=== PATIENT | female | born 1940 | race Caucasian/White ===

== ENCOUNTER 2017-07-15 13:50 | Observation (INO) | payer MEDICARE, SELFPAY ==
[2017-07-15] VITALS (10 sets, daily range): BP systolic 84–145; BP diastolic 58–90; PULSE 58–96; RESP 16–18; TEMP 36.6–36.7; O2SAT 94–100; BMI 26.1; BMI 25.7
--- NOTE | 2017-07-15 13:59 | NURSING ---
NO OLD EKGS
--- NOTE | 2017-07-15 14:25 | EKG12_ITS ---
Test Reason : CP Blood Pressure : / mmHG Vent. Rate : 074 BPM Atrial Rate : 074 BPM P-R Int : 156 ms QRS Dur : 066 ms QT Int : 390 ms P-R-T Axes : 064 -13 034 degrees QTc Int : 432 ms Sinus rhythm with Premature atrial complexes Inferior infarct , age undetermined Abnormal ECG Confirmed by WALI MCGHEE, CROW ([id number]), scientific publications editor CHRISTOFER FERGUSON ([id number]) on 07/19/2017 1:34:40 PM Referred By: RASHMI Confirmed By:CROW KEYES MD
--- NOTE | 2017-07-15 14:25 | RAD_ITS ---
STUDY: X-RAY CHEST REASON FOR EXAM: Female, 77 years old. chest pain, SOB TECHNIQUE: Single AP portable view of the chest. COMPARISON: None. FINDINGS: There is a calcified granuloma in the right lung upper lobe measures 3 mm. There is no demonstrated pleural abnormality. Normal size heart. Normal mediastinum and ranulfo. Normal visualized pulmonary arteries. Normal visualized aortic arch and descending thoracic aorta. There is a mild dextroscoliosis of the thoracic spine. There is degenerative osteoarthritis of the bilateral shoulders. There is no demonstrated abnormality of the visualized soft tissue structures of the upper abdomen. RAD/Chest 1 View (Portable) IMPRESSION: Degenerative changes, as described above. No demonstrated acute cardiopulmonary process. Electronically Signed: Gracia Marie MD at 14:45 EDT Tel , Service support ,
[2017-07-15] MEDS: Aspirin 81 MG TAB.CHEW 324 MG PO (14:29)
[2017-07-15 14:42] LABS: Absolute Lymphocyte Count 3.06 X10^3/ul (0.83-4.51); Absolute Neutrophil Count 6.3 X10^3/uL (2.0-7.7); Basophil# 0.03 X10^3/uL; Basophil% 0.3 % (0-1); Eosinophil# 0.05 X10^3/uL; Eosinophils% 0.5 % (0-5); Hematocrit 43.2 % (37-47); Hemoglobin 14.1 g/dl (12.0-15.0); Lymphocyte # 3.06 X10^3/ul (4.0); Lymphocyte % 29.9 % (19-41); Mean Corp Hgb Conc 32.6 g/gl (32-36); Mean Corpuscular Hgb 30.1 pg (27.0-32.0); Mean Corpuscular Volume 92.3 fL (81-99); Mean Platelet Vol. 10.7 fl (6.2-12.0); Monocyte# 0.76 X10^3/uL; Monocyte% 7.4 % (0-10); Neutrophil # 6.33 X10^3/uL (2.7-7.7); Neutrophil % 61.7 % (47-70); Platelet Count 348 K/mm3 (150-450); RBC Distribution Width CV 13.7 % (11.6-14.6); RBC Distribution Width SD 45.2 fl (35.1-43.9); Red Blood Count 4.68 M/mm3 (4.2-5.4); White Blood Count 10.3 K/mm3 (4.4-11.0)
[2017-07-15 14:43] LABS: POSITIVE COUNT NO; POSITIVE DIFFERENTIAL NO; POSITIVE MORPHOLOGY NO
[2017-07-15 14:52] LABS: Anion Gap 6 (5-15); BUN 28 mg/dL (7-18); BUN/Creat Ratio 21.4 RATIO (10-20); Calcium,Total 8.7 mg/dL (8.5-10.1); Chloride 105 mmol/L (98-107); Creatinine, Serum 1.31 mg/dL (0.55-1.02); EST Glomerular Filtration Rate 42 mL/min (>60); Est Glom Filt Rate - Afr Amer 51 mL/min (>60); Estimated Creatinine Clearance 32.36 ml/min; Glucose 107 mg/dL (74-106); Potassium 3.8 mmol/L (3.5-5.1); Sodium Level 142 mmol/L (136-145)
--- NOTE | 2017-07-15 15:14 | NURSING ---
DR SCHAFER CALLED BACK
--- NOTE | 2017-07-15 15:23 | ED.VISSUMM ---
- ER Visit Summary Date of Service: 07/15/17 Chief Complaint: Chest pain History of Present Illness: The patient is a 77 F with chest pain earlier today. Patient has a history of diabetes, hypertension, and hyperlipidemia. She thinks she had a cardiac catheterization in 2010 showed a 25% blockage, but he did not remember any other details. 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 Patient also has some bloating and her PCP was concerned for acid reflux. Physical Examination: Vital signs showed an initial blood pressure of 84/59. Otherwise vitals were normal. The patient was mentating well. No acute distress. Heart regular. Lungs clear. Abdomen soft. Skin appears normal. Calf soft and supple. Test Results: EKG showed sinus rhythm at a rate of 74. Patient has remote inferior changes. No acute ischemia or infarction pattern. Workup fairly unremarkable. Troponin normal. Emergency Department Course and Treatment: Patient had aspirin. She was pain-free. She was placed on a monitor. Blood pressure improved to 130 systolic. No new or worsening symptoms. There was concern that the patient may have acid reflux, but she has a history of an abnormal catheterization. She had a stress test which was negative, but this was about a year ago. She has EKG changes and multiple risk factors. I cannot rule out cardiac disease based on her presentation. I have low suspicion for PE or dissection. Nothing else concerning on the workup. I spoke with the hospitalist who will admit. Treatment Plan: As above Disposition: Admission Impression: 1. Chest pain This note was generated with [employer] dictation software. It may contain incorrect words, spelling, and punctuation that were not noted in review of the chart prior to signing ED Disposition - Plan for ED Patient: Chief Complaint: Chest Pain Referrals: Vivek Logan MD [Primary Care Provider] -
--- NOTE | 2017-07-15 15:31 | NURSING ---
ANNA MARIEU OBS CP GILMAR
--- NOTE | 2017-07-15 15:45 | HP.PCM_ITS ---
History of Present Illness Date of Admission: 07/15/17 Chief Complaint: Chest pain The patient is a 77 year old F with past medical history of history of diabetes , hypertension, and hyperlipidemia who presented to the emergency room due to chest pressure. 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 Her cardiac biomarkers are within normal limits. The patient reports no associated shortness of breath, palpitations , rapid heartbeat , dizziness. She reports some bloating but denies any nausea, vomiting or abdominal pain. She believes she underwent cardiac catheterization in 2010 and it showed a 25% blockage, but he did not remember any other details.. Past Medical History Allergies latex Allergy (Verified 07/15/17 13:54) Rash Sulfa (Sulfonamide Antibiotics) Allergy (Verified 07/15/17 13:54) Itching acetaminophen [From Tylenol] Adverse Reaction (Verified 07/15/17 13:54) Other lactose Adverse Reaction (Verified 07/15/17 13:54) Upset Stomach Home Medications: Ambulatory Orders Medication Instructions Recorded ALPRAZolam [Xanax] 0.5 mg PO QHS PRN 07/15/17 Aspirin [Aspirin, Baby] 81 mg PO QHS 07/15/17 Losartan/Hydrochlorothiazide 1 tab PO DAILY 07/15/17 [Losartan-Hctz 100-25 mg Tab] Smoking Status: Never smoker - *Family History Maternal History Items: No pertinent history Review of Systems Comment: All Systems were reviewed with pertinent positives mentioned in the HPI above. VTE Information - Inpt Only VTE Present on Admission: No VTE Mechan Device Prophylaxis: SCD's VTE Pharm Prophylaxis ordered?: Yes - Physical Exam General: Alert, Oriented x3 Neck: Supple, No JVD Lungs: Clear to auscultation Cardiovascular: Regular rate, Normal S1 Abdomen: Bowel Sounds Present, Soft, Non Tender, Non-Distended Neurological: Cranial nerves II-XII grossly intact, Deep Tendon Reflexes 2+/4 and Symmetrical, Neuro grossly intact, Motor Exam 5/5 strength throughout Vital Signs Temp Pulse Resp BP Pulse Ox 98.1 F 65 18 131/58 H 100 07/15/17 13:51 07/15/17 14:55 07/15/17 14:55 07/15/17 14:55 07/15/17 14:55 Assessment/Plan 1. Chest pain; will obtain serial cardiac enzymes to rule out ACS assuming negative enzymes the patient would undergo a stress test in the morning to rule out ischemia. 2. Dyspepsia ; the patient will be started on PPI, assuming negative cardiac workup, she would need to undergo EGD as an outpatient. 3. Elevated d-dimer; we will obtain CT angiogram of the chest and go from there. 4. Acute kidney injury; this is most likely prerenal, will hold off on losartan and hydrochlorothiazide and she will be hydrated with 0.9 normal saline , will repeat renal parameters in a.m. 5. DVT Prophylaxis with Lovenox.
[2017-07-15 16:09] LABS: D-Dimer Quantitative (DVT/PE) 0.56 FEU/ug/m (0.27-0.49)
--- NOTE | 2017-07-15 16:14 | CT_ITS ---
CTA Chest WO/W Contrast INDICATION: Elevated D-dimer, chest pain, breast cancer, hypertension. COMPARISON: None TECHNIQUE: High resolution axial CT imaging of the chest during intravenous contrast administration, CTA protocol. Multiplanar and MIP 3D reformatted images. 75 mL of Isovue-370 were given intraveniously. Radiation dose optimization technique applied. FINDINGS: There is no evidence of pulmonary arterial filling defect to suggest PE. Aortic arch is unremarkable. Heart size is at the upper limits of normal. The lungs are clear without evidence of airspace consolidation or pleural effusion. Minimal subpleural scarring is noted at the lung apices. A small calcified granuloma is noted in the right upper lobe peripherally. Visualized portions of the upper abdomen are grossly unremarkable. CT/CTA Chest W/WO Contrast IMPRESSION: No evidence of PE or aortic dissection. Lungs are clear. at 1726 Reported and signed by: Doris Eaton MD Electronically Signed: Doris Eaton MD at 16:25 EDT Tel , Service support ,
[2017-07-15] MEDS: Enoxaparin 80 MG/0.8 ML Syringe 70 MG SC (16:59)
[2017-07-15] MEDS: 0.9% Normal Saline 1,000 ML 125 ML IV (17:00)
[2017-07-16 03:04] VITALS: BP 129/60; PULSE 68; RESP 18; TEMP 36.8; O2SAT 96
[2017-07-16 03:27] VITALS: PULSE 71
[2017-07-16 04:57] LABS: Absolute Lymphocyte Count 3.14 X10^3/ul (0.83-4.51); Absolute Neutrophil Count 4.2 X10^3/uL (2.0-7.7); Basophil# 0.02 X10^3/uL; Basophil% 0.2 % (0-1); Eosinophil# 0.08 X10^3/uL; Hematocrit 37.5 % (37-47); Hemoglobin 12.5 g/dl (12.0-15.0); Lymphocyte # 3.14 X10^3/ul (4.0); Lymphocyte % 38.4 % (19-41); Mean Corp Hgb Conc 33.3 g/gl (32-36); Mean Corpuscular Hgb 30.9 pg (27.0-32.0); Mean Corpuscular Volume 92.8 fL (81-99); Mean Platelet Vol. 10.7 fl (6.2-12.0); Monocyte# 0.75 X10^3/uL; Monocyte% 9.2 % (0-10); Neutrophil # 4.18 X10^3/uL (2.7-7.7); Neutrophil % 51.1 % (47-70); Platelet Count 283 K/mm3 (150-450); RBC Distribution Width CV 13.4 % (11.6-14.6); RBC Distribution Width SD 44.6 fl (35.1-43.9); Red Blood Count 4.04 M/mm3 (4.2-5.4); White Blood Count 8.2 K/mm3 (4.4-11.0)
[2017-07-16 04:58] LABS: POSITIVE COUNT NO; POSITIVE DIFFERENTIAL NO; POSITIVE MORPHOLOGY NO
[2017-07-16 05:04] LABS: Prothrombin Time (Protime)PT. 13.6 SECONDS (11.7-14.9)
[2017-07-16 05:12] LABS: Anion Gap 9 (5-15); BUN 30 mg/dL (7-18); BUN/Creat Ratio 26.8 RATIO (10-20); Calcium,Total 8.5 mg/dL (8.5-10.1); Chloride 108 mmol/L (98-107); Cholesterol 181 mg/dL (200); Creatinine, Serum 1.12 mg/dL (0.55-1.02); EST Glomerular Filtration Rate 50 mL/min (>60); Est Glom Filt Rate - Afr Amer 61 mL/min (>60); Estimated Creatinine Clearance 37.85 ml/min; Glucose 87 mg/dL (74-106); High Density Lipoprotein 49 mg/dL; Potassium 3.7 mmol/L (3.5-5.1); Sodium Level 143 mmol/L (136-145); Triglycerides 123 mg/dL; Very Low Density Lipoprotein 25 mg/dL (5-40)
[2017-07-16] MEDS: 0.9% Normal Saline 1,000 ML 75 ML IV (05:46)
--- NOTE | 2017-07-16 05:55 | EKG12_ITS ---
Test Reason : AM EKG Blood Pressure : / mmHG Vent. Rate : 064 BPM Atrial Rate : 064 BPM P-R Int : 170 ms QRS Dur : 076 ms QT Int : 378 ms P-R-T Axes : 060 -13 032 degrees QTc Int : 389 ms Normal sinus rhythm Inferior infarct , age undetermined Abnormal ECG When compared with ECG of 15-JUL-2017 13:55, MANUAL COMPARISON REQUIRED, DATA IS UNCONFIRMED Confirmed by WALI MCGHEE, CROW ([id number]), editor index CHRISTOFER FERGUSON ([id number]) on 07/21/2017 3:40:11 PM Referred By: GILMAR Confirmed By:CROW KEYES MD
[2017-07-16 06:30] VITALS: BP 125/58; PULSE 64; RESP 18; TEMP 36.9; O2SAT 96
[2017-07-16 07:00] VITALS: PULSE 80
[2017-07-16] MEDS: Pantoprazole Sodium 40 MG Tablet PO (08:19)
[2017-07-16 09:15] VITALS: BP 139/62; PULSE 70; RESP 16; TEMP 36.9; O2SAT 96
--- NOTE | 2017-07-16 11:46 | STRESSREP ---
Stress Test Report Pharmacologic myocardial perfusion stress test. 77-year-old lady with a history of chest pain and dyspnea on exertion. Stress protocol: Resting EKG demonstrates normal sinus rhythm with a rate of 62 bpm normal intervals are noted. 0.4 mg of regadenoson was infused per usual protocol followed by rapid intravenous saline flush injection. Continuous EKG monitoring was performed. The maximum heart rate attained was 98 bpm which is 68% maximum predicted heart rate the maximum workload attained was 1 metabolic equivalent. At rest there were no ST or T-wave changes noted to suggest abnormal flow reserve at peak infusion no ST or T-wave changes were noted suggest abnormal flow reserve. No clinical angina was noted. Resting blood pressure was 160/70 final blood pressure 150/68. Cardial perfusion protocol: 11.8 mCi of technetium 99m sestamibi was injected at rest. 0.4 mg of regadenoson was infused per usual protocol. At peak infusion 36.0 mCi of technetium 99m sestamibi was injected. Stress images were obtained stress and rest images were reconstructed and compared in the short axis vertical long and horizontal long axis. Gated images were also obtained. Perfusion SPECT analysis: Review of the stress images demonstrate normal uptake of tracer noted in all areas of the myocardium. The resting images also demonstrate normal uptake of tracer noted in all areas of the myocardium. No evidence of reversibility is noted and no previous infarct is present as well. Gated SPECT analysis: The gated ejection fraction is noted to be 88%. Conclusion: Normal pharmacologic myocardial perfusion stress test. Preserved ejection fraction.
--- NOTE | 2017-07-16 12:07 | PCM.DC ---
You will use the following diet at home:: Cardiac Discharge Activity: Return to Normal Activity Instructions: ED Chest Pain NonCardiac Allergies/Adverse Reactions: Allergies latex Allergy (Verified 07/15/17 13:54) Rash Sulfa (Sulfonamide Antibiotics) Allergy (Verified 07/15/17 13:54) Itching acetaminophen [From Tylenol] Adverse Reaction (Verified 07/15/17 13:54) Other lactose Adverse Reaction (Verified 07/15/17 13:54) Upset Stomach Medications to take at Discharge ALPRAZolam [Xanax] 0.5 mg PO QHS PRN 07/15/17 Aspirin [Aspirin, Baby] 81 mg PO QHS 07/15/17 Losartan/Hydrochlorothiazide [Losartan-Hctz 100-25 mg Tab] 1 tab PO DAILY 07/15/17 Primary Care Physician: Vivek Logan MD [Primary Care Provider] - Proposed Discharge Date: 07/16/17
--- NOTE | 2017-07-16 12:08 | PCM.DC.SUM ---
Discharge Date and Diagnosis - Problem List Patient Problems: Active and Suspected Problems Chest pain (Acute) Date of Admission: 07/15/17 Date of Discharge: 07/16/17 - Primary Discharge Diagnosis Active and Suspected Problems Chest pain (Acute) Hospital Course and Treatment Imaging Results: 07/16/17 05:55 Nuclear Stress Test - Chemical [NM] AM (NON MEDS) Operations: appendectomy Summary of Care Provided: The patient is a 77 year old F with past medical history of history of diabetes, hypertension, and hyperlipidemia who presented to the emergency room due to chest pressure. 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 Her cardiac biomarkers are within normal limits. He underwent a stress test that was negative for ischemia and she was discharged home in a stable condition symptom-free. She is recommended to follow-up with her primary care doctor should her symptoms recur. Discharge Activity: Return to Normal Activity Home Medications: Medications to take at Discharge ALPRAZolam [Xanax] 0.5 mg PO QHS PRN 07/15/17 Aspirin [Aspirin, Baby] 81 mg PO QHS 07/15/17 Losartan/Hydrochlorothiazide [Losartan-Hctz 100-25 mg Tab] 1 tab PO DAILY 07/15/17 Primary Care Physician: Vivek Logan MD [Primary Care Provider] - Patient Instructions: ED Chest Pain NonCardiac Medical Necessity - Tobacco Use Smoking Status: Never smoker Meaningful Use Info Meaningful Use Diagnoses (Choose all that apply): None applicable Code Visit OBSV E&M: 70517 Observation care discharge
== END 2017-07-16 13:39 | disposition home or self-care (01) ==
LOC: ED 15:31 → PCU 15:35
PROVIDERS: Admitting Provider Internal Medicine; Emergency Provider Emergency Medicine; Family Provider Family Medicine; PCP Family Medicine; Visit Provider Internal Medicine
DX: R07.89 Other chest pain (principal); E11.9 Type 2 diabetes mellitus without complications; I10 Essential (primary) hypertension; E78.5 Hyperlipidemia, unspecified; Z79.899 Other long term (current) drug therapy; Z79.82 Long term (current) use of aspirin; N17.9 Acute kidney failure, unspecified; R10.13 Epigastric pain; I25.10 Atherosclerotic heart disease of native coronary artery without angina pectoris
CPT/HCPCS: 36415; 71045; 71275; 78452; 80048; 80061; 84484; 85025; 85379; 85610; 85730; 93005; 93017; 96360; 96361; 96372; 99218; 99285; A9500; J7030; Q9967; A4216; G0378; J2785

== ENCOUNTER → 2018-03-09 11:35 | Outpatient (CLI) | payer MEDICARE, SELFPAY ==
[2018-03-09 14:19] LABS: Anion Gap 7 (5-15); BUN 22 mg/dL (7-18); BUN/Creat Ratio 17.6 RATIO (10-20); Chloride 107 mmol/L (98-107); Cholesterol 208 mg/dL (200); Creatinine, Serum 1.25 mg/dL (0.55-1.02); EST Glomerular Filtration Rate 44 mL/min (>60); Est Glom Filt Rate - Afr Amer 53 mL/min (>60); Glucose 73 mg/dL (74-106); High Density Lipoprotein 55 mg/dL; Potassium 4.5 mmol/L (3.5-5.1); Sodium Level 143 mmol/L (136-145); Triglycerides 129 mg/dL; Very Low Density Lipoprotein 26 mg/dL (5-40)
== END ==
PROVIDERS: Family Provider Family Medicine; PCP Family Medicine; Visit Provider Family Medicine
DX: I10 Essential (primary) hypertension (principal)
CPT/HCPCS: 36415; 80048; 80061

== ENCOUNTER → 2018-09-06 14:17 | Outpatient (CLI) | payer MEDICARE, SELFPAY ==
--- NOTE | 2018-09-06 14:23 | RAD_ITS ---
STUDY: X-RAY - CERVICAL SPINE REASON FOR EXAM: Female, 78 years old. Pain TECHNIQUE: 7 view(s) of the cervical spine were obtained. COMPARISON: None FINDINGS: There is no evidence of fracture or dislocation in the cervical spine. The dens is intact. The vertebral body heights and disc spaces are well-maintained. Moderate degenerative changes are present from C5 through C7, greatest at the C5-C6 level. The prevertebral soft tissues are unremarkable. There is no radiodense foreign body. RAD/Cerv Spine 4 or 5 Views IMPRESSION: No fracture or dislocation in the cervical spine. Degenerative changes described above. Electronically Signed: Steven Vázquez, at 17:45 EDT Tel , Service support ,
== END ==
PROVIDERS: Family Provider Family Medicine; PCP Family Medicine; Referring Provider Family Medicine; Visit Provider Family Medicine
DX: M54.2 Cervicalgia (principal)
CPT/HCPCS: 72050

== ENCOUNTER → 2018-12-04 14:57 | Outpatient (CLI) | payer MEDICARE, SELFPAY ==
[2017-07-15 16:21] VITALS: BMI 25.7
--- NOTE | 2018-12-04 15:00 | RAD_ITS ---
STUDY: X-RAY - LEFT SHOULDER REASON FOR EXAM: Female, 78 years old. Pain TECHNIQUE: 4 view(s) of the shoulder. COMPARISON: None. FINDINGS: Narrowed to glenohumeral articulation. Normal acromioclavicular joint. Normal acromion. Normal humeral head and visualized proximal humerus. The soft tissue structures are unremarkable. Normal visualized pulmonary apex. RAD/Shoulder min 2 Views IMPRESSION: Degenerative changes. No evidence for acute fracture. Electronically Signed: Steven Batista MD at 21:26 EDT , Service support ,
== END ==
PROVIDERS: Family Provider Family Medicine; PCP Family Medicine; Referring Provider Family Medicine; Visit Provider Family Medicine
DX: M19.012 Primary osteoarthritis, left shoulder (principal)
CPT/HCPCS: 73030

== ENCOUNTER → 2019-01-30 12:05 | Outpatient (CLI) | payer MEDICARE, SELFPAY ==
--- NOTE | 2019-01-30 12:07 | BD_ITS ---
STUDY: DUAL ENERGY X-RAY ABSORPTIOMETRY / DXA REASON FOR EXAM: Female, 78 years old. Early menopause. Loss of height. TECHNIQUE: Bone Mineral Density (BMD) measurements of lumbar spine and bilateral hips were obtained. COMPARISON: None. FINDINGS: Lumbar Spine (L1-L4): g/cm2 (0.912) / T-score (-2.4) / Z-score (-0.6) Findings are suggestive of osteopenia with a high fracture risk. Left Femur Total: g/cm2 (0.936) / T-score (-0.6) / Z-score (1.4) Left Femoral Neck: g/cm2 (0.773) / T-score (-1.9) / Z-score (0.2) Right Femur Total: g/cm2 (0.887) / T-score (-1.0) / Z-score (1.0) Right Femoral Neck: g/cm2 (0.834) / T-score (-1.5) / Z-score (0.6) BD/Dexa Bone Density Study IMPRESSION: The patient is considered osteopenic as outlined below according to World Edgardo Organization (WHO) criteria with a high fracture risk. Reference Information: The T-score is the number of standard deviations above or below the standard which is normal for young adults at their peak bone mineral density. The World Health Organization (WHO) interprets the T-scores as follows: Above -1 Normal bone density Between -1 and -2.5 Osteopenia Equal to / or below -2.5 Osteoporosis As a practical clinical guideline, osteopenia may be graded as follows: Mild -1 through -1.5 Moderate -1.6 through -2.0 Severe -2.1 through -2.4 The Z-score is the number of standard deviations above or below age-matched controls. A Z-score of less than -1.5 would be considered abnormal. References: 1. NIH Osteoporosis and Related Bone Diseases http://www.osteo.org 2. International Society for Clinical Densitometry http://www.iscd.org 3. National Osteoporosis Foundation http://www.nof.org Electronically Signed: Jeronimo Matthews, at 9:24 EDT , Service support ,
--- NOTE | 2019-01-30 12:08 | BI_ITS ---
MAMMOGRAPHY - BILATERAL SCREENING 3-D TOMOSYNTHESIS REASON FOR EXAM: Female, 78 years old. PERTINENT HISTORY: No significant family history. TECHNIQUE: 2-D mammograms and 3-D Tomosynthesis of the breast (s) were performed. CAD was performed. COMPARISON: Previous mammogram obtained on 01/26/2018. FINDINGS: The breast composition is heterogeneously dense Scattered benign calcifications are seen. No dense spiculated masses or suspicious microcalcifications are identified. No architectural distortion is identified. There is no skin thickening or retraction. There has been no significant change since the prior study. Surgical clips are seen in the medial aspect of the left breast which were previously identified and are unchanged. BI/SCREEN MAMM (CAD) W/TRISH BILAT IMPRESSION: No mammographic signs of malignancy. Routine yearly mammograms recommended. ASSESSMENT CATEGORY: BIRADS Category 1: Negative. A letter regarding these results will be sent to the patient by the facility within 30 days. FOLLOW UP RECOMMENDATION: Yearly follow up mammogram recommended. (A) Approximately 10% of breast cancers are not detected by mammography. A normal mammogram should not delay biopsy of a clinically suspicious abnormality. Electronically Signed: Jj Jimenez, at 9:39 EDT Tel , Service support ,
== END ==
PROVIDERS: Family Provider Family Medicine; PCP Family Medicine; Referring Provider Family Medicine; Visit Provider Family Medicine
DX: Z78.0 Asymptomatic menopausal state (principal); Z12.31 Encounter for screening mammogram for malignant neoplasm of breast
CPT/HCPCS: 77063; 77067; 77080

== ENCOUNTER → 2019-08-30 14:04 | Outpatient (CLI) | payer MEDICARE, SELFPAY ==
[2019-08-30 15:21] LABS: Absolute Lymphocyte Count 2.32 X10^3/uL (0.83-4.51); Absolute Neutrophil Count 5.6 X10^3/uL (2.0-7.7); Basophil# 0.04 X10^3/uL; Basophil% 0.5 % (0-1); Eosinophil# 0.05 X10^3/uL; Eosinophils% 0.6 % (0-5); Hematocrit 45.5 % (37-47); Hemoglobin 14.3 g/dL (12.0-15.0); Lymphocyte # 2.32 X10^3/ul (4.0); Mean Corp Hgb Conc 31.4 g/dL (32-36); Mean Corpuscular Hgb 29.4 pg (27.0-32.0); Mean Corpuscular Volume 93.4 fL (81-99); Mean Platelet Vol. 10.6 fl (6.2-12.0); Monocyte# 0.53 X10^3/uL; Monocyte% 6.2 % (0-10); NRBC Flagged by Analyzer 0 % (0-5); Neutrophil # 5.64 X10^3/uL (2.7-7.7); Neutrophil % 65.5 % (47-70); Platelet Count 334 K/mm3 (150-450); RBC Distribution Width CV 13.3 % (11.6-14.6); RBC Distribution Width SD 45.7 fl (35.1-43.9); Red Blood Count 4.87 M/mm3 (4.2-5.4); White Blood Count 8.6 K/mm3 (4.4-11.0)
[2019-08-30 15:54] LABS: Thyroid Stim Hormone (TSH) 1.06 uIU/mL (0.358-3.74)
== END ==
PROVIDERS: PCP Family Medicine; Visit Provider Family Medicine
DX: R63.4 Abnormal weight loss (principal)
CPT/HCPCS: 36415; 84443; 85025

== ENCOUNTER → 2020-02-05 12:55 | Outpatient (CLI) | payer MEDICARE, SELFPAY ==
--- NOTE | 2020-02-05 12:58 | BI_ITS ---
MAMMOGRAPHY - BILATERAL SCREENING REASON FOR EXAM: Female, 79 years old. Routine annual screening examination. PERTINENT HISTORY: Personal history of breast cancer. Prior left lumpectomy. TECHNIQUE: Digital bilateral breast trish (3D mammographic acquisition) in the CC and MLO projections. 2-D mediolateral oblique (MLO) and craniocaudad (CC) views of both breasts were obtained. CAD: Full Field Digital Mammography with Computer Added Detection was performed. COMPARISON: Comparison is made with prior examination 01/30/2019. FINDINGS: Breast Composition: The breasts are heterogeneously dense, which may obscure small masses. There are no dominant masses or suspicious calcifications. Once again, the patient is status post lumpectomy in the deep central medial aspect of the left breast with postoperative scarring and deformity of the nipple on the left side. This is unchanged. No other significant abnormalities are identified. There has been no significant change since the prior study. BI/SCREEN MAMM (CAD) W/TRISH BILAT IMPRESSION: Stable bilateral screening mammogram. Yearly follow-up mammogram recommended. (A) ASSESSMENT CATEGORY: BIRADS Category 2: Benign. A letter regarding these results will be sent to the patient by the facility within 30 days. Approximately 10% of breast cancers are not detected by mammography. A normal mammogram should not delay biopsy of a clinically suspicious abnormality. [id number] Electronically Signed: Jeronimo Matthews, at 14:35 EDT , Service support ,
== END ==
PROVIDERS: PCP Family Medicine; Referring Provider Family Medicine; Visit Provider Family Medicine
DX: Z12.31 Encounter for screening mammogram for malignant neoplasm of breast (principal)
CPT/HCPCS: 77063; 77067

== ENCOUNTER → 2021-02-05 11:13 | Outpatient (CLI) | payer MEDICARE, SELFPAY ==
--- NOTE | 2021-02-05 11:14 | BI_ITS ---
MAMMOGRAPHY - BILATERAL SCREENING REASON FOR EXAM: Female, 80 years old. Routine annual screening examination. PERTINENT HISTORY: Personal history of breast cancer. Prior left lumpectomy. TECHNIQUE: Digital bilateral breast trish (3D mammographic acquisition) in the CC and MLO projections. 2-D mediolateral oblique (MLO) and craniocaudad (CC) views of both breasts were obtained. CAD: Full Field Digital Mammography with Computer Added Detection was performed. COMPARISON: Comparison is made with prior study dated 02/05/2020 and 01/30/2019. FINDINGS: Breast Composition: The breasts are heterogeneously dense, which may obscure small masses. There are no dominant masses or suspicious calcifications. The patient is status post lumpectomy in the deep central medial aspect of the left breast with stable postoperative changes. Stable deformity of the left nipple. No other significant abnormalities are identified. There has been no significant change since the prior study. BI/SCRN MAMM (CAD)W/TRISH BILAT IMPRESSION: Stable bilateral screening mammogram. Yearly follow-up mammogram recommended. (A) ASSESSMENT CATEGORY: BIRADS Category 2: Benign. A letter regarding these results will be sent to the patient by the facility within 30 days. Approximately 10% of breast cancers are not detected by mammography. A normal mammogram should not delay biopsy of a clinically suspicious abnormality. [id number] Electronically Signed: Jeronimo Matthews MD at 12:15 EDT , Service support ,
== END ==
PROVIDERS: PCP Family Medicine; Referring Provider Family Medicine; Visit Provider Family Medicine
DX: Z12.31 Encounter for screening mammogram for malignant neoplasm of breast (principal)
CPT/HCPCS: 77063; 77067

== ENCOUNTER 2021-05-14 10:24 | Emergency (ER) | payer MEDICARE, SELFPAY ==
[2021-05-14 10:25] VITALS: BP 137/64; PULSE 71; RESP 14; TEMP 36.4; O2SAT 95; BMI 25.8
--- NOTE | 2021-05-14 10:58 | RAD_ITS ---
STUDY: X-RAY CHEST REASON FOR EXAM: Female, 81 years old. Dyspnea TECHNIQUE: Single AP portable view of the chest. COMPARISON: Comparison is made with prior study dated 07/15/2017. FINDINGS: Mild bibasilar infiltrates. Mild increased markings in the peripheral aspect of the left upper lobe. There is no demonstrated pleural abnormality. Normal size heart. Normal mediastinum and ranulfo. Normal visualized pulmonary arteries. There is atherosclerotic calcification of the aortic arch with tortuosity. There are diffuse degenerative changes of the visualized thoracic spine. Normal visualized ribs, clavicles, and shoulders. There is no demonstrated abnormality of the visualized soft tissue structures of the upper abdomen. RAD/Chest 1 View (Portable) IMPRESSION: Mild increased markings at the lung bases as well as in the peripheral lateral aspect of the left upper lobe. Early infiltrate should be ruled out. Electronically Signed: Jeronimo Matthews MD at 11:51 EST , Service support ,
--- NOTE | 2021-05-14 11:00 | EDS_ITS ---
HPI History of Present Illness Chief Complaint: Fever Detail of Chief Complaint: Fever and not feeling well for 2 and a's. Informant: patient Narrative Narrative: Patient states that she started with a cold about 2 and half weeks ago. Patient was called in antibiotics and has been on Augmentin. Patient states that her also now has a cold. Patient has not been immunized against COVID-19 but her has been. Patient denies any chest pain. She does describe fatigue and not feeling well. Cough mostly nonproductive. She denies dysuria. Prior similar symptoms: No PFSH PFSH Home Medications alprazolam 0.5 mg PO QHS PRN 07/15/17 [History Last Taken Unknown] losartan-hydrochlorothiazide 1 tab PO DAILY 07/15/17 [History Last Taken 07/15/17] amlodipine 05/14/21 [History Last Taken Unknown] Allergy/AdvReac Type Severity Reaction Status Date / Time latex Allergy Rash Verified 05/14/21 10:25 Sulfa (Sulfonamide Allergy Itching Verified 05/14/21 10:25 Antibiotics) acetaminophen [From Tylenol] AdvReac Other Verified 05/14/21 10:25 lactose AdvReac Upset Verified 05/14/21 10:25 Stomach Social History Smoking Status: Never smoker ROS ROS ED ROS Narrative Patient complains of bad taste in her mouth and things tasting terribly. Constitutional Constitutional ED: Reports systems reviewed and no addt'l complaints, except as documented; Denies body ache(s), change in weight or chills Eyes Eyes: Denies acute decrease in peripheral vision, change in vision, double vision or loss of vision ENT ENT ED: Reports none; Denies ear pain, lip swelling, loss taste/smell, neck pain, otalgia or sore throat Cardiovascular Cardiovascular: Reports none; Denies abdominal pain, chest pain with activity, leg edema, lightheadedness, palpitations, rapid heart rate or syncope Respiratory/Chest Respiratory/Chest: Reports none, cough and dyspnea; Denies change in mental status, dry cough, hemoptysis, shortness of breath at rest or shortness of breath with exertion Gastrointestinal Gastrointestinal: Reports none; Denies abdominal pain, change in stool character, diarrhea, hematemesis, hematochezia, melena, rectal bleeding or vomiting Genitourinary Genitourinary ED: Reports none; Denies abdominal discomfort, anuria, dysuria, genital pain or polyuria Musculoskeletal Musculoskeletal: Reports none; Denies arthralgias, back pain, difficulty walkin g, extremity pain, muscle weakness or myalgias Integumentary Reports none; Denies abscess or rash Neurologic Neurologic: Reports none and weakness; Denies abnormal gait, confusion, focal weakness, frequent falls, headache(s), loss of vision, numbness, paresthesias, radicular pain or vertigo Psychiatric Psychiatric: Reports systems reviewed and no addt'l complaints, except as documented and none; Denies behavioral changes, confusion, difficulty concentrating, hallucinations, suicidal ideation, tactile hallucinations or visual hallucinations Endocrine Endocrinology: Denies none, cold intolerance, excessive sweating, fatigue or heat intolerance Hematologic/Lymphatic Hematologic/Lymphatic: Reports none; Denies anemia, easy bleeding or easy bruising Allergic/Immunologic Allergic/Immunologic ED: Denies as per HPI, none, lip swelling, mouth swelling, throat swelling, tongue swelling or hives EXAM Physical Exam Const Vital Signs: 05/14/21 10:25 05/14/21 11:10 05/14/21 13:22 Temperature 97.6 F L Temperature Source Temporal Pulse Rate 71 128 H Respiratory Rate 14 23 H Respiratory Effort Short of Breath Respiratory Pattern Normal Blood Pressure 137/64 H 105/74 Blood Pressure Mean 88 84 Pulse Ox 95 93 Oxygen Delivery Method Room Air Room Air 05/14/21 15:00 Temperature Temperature Source Pulse Rate Respiratory Rate 14 Respiratory Effort Respiratory Pattern Blood Pressure Blood Pressure Mean Pulse Ox Oxygen Delivery Method Positive well nourished and well developed General Appearance ED: well developed and NAD HEENT Reports TM's clear and moist mucous membranes normocephalic and atraumatic; Negative for trauma or tenderness Tympanic Membrane ED: Yes TM's clear Eyes PERRL and EOMs intact bilaterally General Eye ED: Negative for pale conjunctiva or scleral icterus Neck no lymphadenopathy, supple and no JVD General: Negative for tenderness Chest Wall inspection of chest normal and palpation of chest normal Chest: Negative for tenderness Resp normal respiratory effort and clear to auscultation bilaterally Effort and Inspection: Negative for respiratory distress or pain with movement Auscultation: Negative for rhonchi, wheezes or diminished lung sounds Cardio regular rate, regular rhythm, S1 normal heart sound, S2 normal heart sound and no murmurs Peripheral Pulses: pulses 2+ throughout GI normal to inspection, nondistended, normoactive bowel sounds, soft to palpation, non-tender, non-distended and no masses Back/Spine no CVA tenderness and no thoracic nor lumbar tenderness Extremity normal to inspection General Extremety ED: Negative for edema General Extremity: Negative for edema Neuro oriented x3, CN's II-XII intact bilaterally, no sensory deficits noted and gait normal Sensorium / Orientation: awake, alert, oriented to person, oriented to place and oriented to time Motor Exam: strength 5/5 throughout and strength abnormal Psych mental status grossly normal Skin no rashes or lesions noted and no wounds MDM MDM MDM Narrative Medical decision making narrative: IV line established on arrival. Patient had lab work-up that was unremarkable. D-dimer was elevated so CTA was obtained which was negative for PE but did show bilateral groundglass opacities consistent with COVID pneumonitis. Initial COVID-19 rapid test was negative however the PCR test was positive for COVID-19. At this point patient's had symptoms for approximately 18 days therefore she is really not a candidate for monoclonal antibody infusion. Patient is not hypoxic and will not require ox ygen. I discussed case with her primary care physician Dr. Vivek Logan and he asked that she follow-up with his office next week. Patient advised to check her oxygen saturations at home and return if O2 saturation less than 90% or increased dyspnea. Lab Data Attestation: I reviewed the patient's lab results. Labs: Laboratory Results - last 24 hr 05/14/21 05/14/21 05/14/21 11:21 11:21 11:21 WBC 6.5 RBC 4.76 Hgb 13.8 Hct 42.4 MCV 89.1 MCH 29.0 MCHC 32.5 RDW Std Deviation 42.2 RDW Coeff of Dean 12.9 Plt Count 275 MPV 10.7 Immature Gran % (Auto) 0.200 Neut % (Auto) 70.4 H Lymph % (Auto) 20.6 [place] % (Auto) 8.6 Eos % (Auto) 0.0 Baso % (Auto) 0.2 Absolute Neuts (auto) 4.6 Absolute Lymphs (auto) 1.34 Nucleated RBC % 0 D-Dimer Quant (PE/DVT) 1.73 H* Sodium 143 Potassium 3.6 Chloride 110 H Carbon Dioxide 26.0 Anion Gap 7 BUN 19 H Creatinine 1.00 Estim Creat Clear Calc 39.70 Est GFR (MDRD) Af Amer 68 Est GFR (MDRD) Non-Af 57 L BUN/Creatinine Ratio 19.0 Glucose 102 Lactic Acid Calcium 8.8 Troponin I High Sens 10 Urine Color Urine Clarity Urine pH Ur Specific [place] Urine Protein Urine Glucose (UA) Urine Ketones Urine Occult Blood Urine Nitrite Urine Bilirubin Urine Urobilinogen Ur Leukocyte Esterase Urine RBC Urine WBC Ur Squamous Epith Cells Urine Bacteria Urine Mucus COVID-19 (ARETHA) 05/14/21 05/14/21 05/14/21 11:21 11:21 11:59 WBC RBC Hgb Hct MCV MCH MCHC RDW Std Deviation RDW Coeff of Dean Plt Count MPV Immature Gran % (Auto) Neut % (Auto) Lymph % (Auto) [place] % (Auto) Eos % (Auto) Baso % (Auto) Absolute Neuts (auto) Absolute Lymphs (auto) Nucleated RBC % D-Dimer Quant (PE/DVT) Sodium Potassium Chloride Carbon Dioxide Anion Gap BUN Creatinine Estim Creat Clear Calc Est GFR (MDRD) Af Amer Est GFR (MDRD) Non-Af BUN/Creatinine Ratio Glucose Lactic Acid 1.4 Calcium Troponin I High Sens Urine Color Yellow Urine Clarity Sl. Cloudy Urine pH 6.0 Ur Specific [place] 1.015 Urine Protein 30 H Urine Glucose (UA) Normal Urine Ketones 5 H Urine Occult Blood 10 H Urine Nitrite Negative Urine Bilirubin 1 H Urine Urobilinogen 4 H Ur Leukocyte Esterase 100 H Urine RBC 0 SEEN Urine WBC 0-5 SEEN Ur Squamous Epith Cells 0-5 SEEN Urine Bacteria RARE Urine Mucus 0 SEEN COVID-19 (ARETHA) Detected Radiography Diagnostic Testing: Clinical Impression(s) from Imaging Studies Chest X-Ray 05/14/21 10:58 IMPRESSION: Mild increased markings at the lung bases as well as in the peripheral lateral aspect of the left upper lobe. Early infiltrate should be ruled out. Electronically Signed: Jeronimo Matthews MD at 11:51 EST , Service support , Chest CTA 05/14/21 11:56 IMPRESSION: No evidence of pulmonary embolism. Bilateral patchy infiltrates in a preferential peripheral distribution suggestive of pneumonitis associated with cold. Electronically Signed: Jeronimo Matthews MD at 13:07 EST , Service support , 1 view chest x-ray obtained interpreted by myself as increased markings bilateral lower lobes suspicious for infiltrates. Radiology in agreement. Discharge Plan Triage Chief Complaint: Fever ED Provider: Garth Ragland Dx/Rx/DC Orders Clinical Impression: COVID-19, Acute dyspnea Instructions: ED Dyspnea, Caring for Someone Who Has COVID-19 Prescriptions: No Action losartan-hydrochlorothiazide 1 EACH tablet 1 tab PO DAILY RF: 0 alprazolam 0.5 MG tablet 0.5 mg PO QHS PRN (Reason: Sleep) RF: 0 amlodipine 5 mg tablet RF: 0 Primary Care Provider: Vivek Logan Referrals: Vivek Logan MD [Primary Care Provider] - 3-5 Days Disposition Disposition: Home, Self Care
[2021-05-14] MEDS: 0.9% Normal Saline 1,000 ML 150 ML IV (11:17)
[2021-05-14 11:30] LABS: Mucous, Urine 0 SEEN /hpf (<or=2+)
[2021-05-14 11:34] LABS: Color, Urine Yellow (Yellow); Glucose, Dipstick Normal (Normal); Ketone-Dipstick 5 mg/dl (Negative); Leukocyte Esterase-Dipstick 100 /ul (Negative); Nitrite-Dipstick Negative (Negative); Occult Blood-Urine 10 /ul (Negative); Protein-Dipstick 30 mg/dl (Negative); Specific Gravity, Urine 1.015 (1.002-1.030); Urine Bilirubin Dipstick 1 mg/dL (Negative); Urine Clarity Sl. Cloudy (Clear); Urine Urobilinogen 4 mg/dl (Normal)
[2021-05-14 11:36] LABS: Absolute Lymphocyte Count 1.34 X10^3/uL (0.83-4.51); Absolute Neutrophil Count 4.6 X10^3/uL (2.0-7.7); Basophil# 0.01 X10^3/uL; Basophil% 0.2 % (0-1); Hematocrit 42.4 % (37-47); Hemoglobin 13.8 g/dL (12.0-15.0); Lymphocyte # 1.34 X10^3/ul (0.83-4.51); Lymphocyte % 20.6 % (19-41); Mean Corp Hgb Conc 32.5 g/dL (32-36); Mean Corpuscular Volume 89.1 fL (81-99); Mean Platelet Vol. 10.7 fl (6.2-12.0); Monocyte# 0.56 X10^3/uL; Monocyte% 8.6 % (0-10); NRBC Flagged by Analyzer 0 % (0-5); Neutrophil # 4.59 X10^3/uL (2.7-7.7); Neutrophil % 70.4 % (47-70); Platelet Count 275 K/mm3 (150-450); RBC Distribution Width CV 12.9 % (11.6-14.6); RBC Distribution Width SD 42.2 fl (35.1-43.9); Red Blood Count 4.76 M/mm3 (4.2-5.4); White Blood Count 6.5 K/mm3 (4.4-11.0)
[2021-05-14 11:44] LABS: White Blood Cells 0-5 SEEN /hpf (0-5)
[2021-05-14 11:45] LABS: Bacteria RARE /hpf (None Seen); Red Blood Cells-Urine 0 SEEN /hpf (0-5); Squamous Epithelial Cells - UA 0-5 SEEN /hpf (5-10)
[2021-05-14 11:49] LABS: D-Dimer Quantitative (DVT/PE) 1.73 FEU/ug/m (0.27-0.49)
[2021-05-14 11:51] LABS: Anion Gap 7 (5-15); BUN 19 mg/dL (7-18); Calcium,Total 8.8 mg/dL (8.5-10.1); Chloride 110 mmol/L (98-107); EST Glomerular Filtration Rate 57 mL/min (>60); Est Glom Filt Rate - Afr Amer 68 mL/min (>60); Glucose 102 mg/dL (74-106); Potassium 3.6 mmol/L (3.5-5.1); Sodium Level 143 mmol/L (136-145); Troponin-I HS 10 pg/mL (3.0-54.0)
[2021-05-14 11:56] LABS: Lactic Acid 1.4 mmol/L (0.4-1.9)
--- NOTE | 2021-05-14 11:56 | CT_ITS ---
STUDY: CTA CHEST REASON FOR EXAM: Female, 81 years old. Dyspnea, elevated d-dimer RADIATION DOSAGE (If Supplied By Facility): CTDIvol = ( 9.89 ) mGy, DLP = ( 333.78 ) mGycm TECHNIQUE: The examination was performed with the intravenous administration of IV 100mL Isovue-370. Post-processing of the angiographic images was performed, with multiplanar reformation and 3D reconstruction. Individualized dose optimization techniques were used for this CT. COMPARISON: Comparison is made with prior CT scan of the chest dated 07/15/2017 and prior chest radiograph done earlier today. FINDINGS: Normal enhancement of the main pulmonary artery and right and left pulmonary arteries. Normal enhancement of the bilateral peripheral pulmonary arteries. There is no demonstrated pulmonary embolism. Normal thoracic aorta and visualized great vessels. There is no demonstrated aortic dissection. Normal heart and pericardium. Normal mediastinum. Normal hilar regions. Normal visualized trachea and bronchi. The lungs are well expanded. Patchy alveolar infiltrate in the peripheral lateral aspect of the right upper lobe. Patchy infiltrates are also seen in the peripheral lateral aspect of the left upper lobe and posterior aspect of the right upper lobe. Patchy peripheral infiltrates are also seen in the right middle lobe as well as the lingular segment of the left upper lobe and both lower lobes. This is worse in the left lower lobe. Pneumonitis associated with Covid should be ruled out. Normal pleura. Normal chest wall structures. There are degenerative changes of thoracic spine. Stable 5.6 mm rounded sclerotic lesion in the inferior aspect of the T4 vertebrae. This most likely represents a small bone island. The patient is status post cholecystectomy. Small hiatal hernia. CT/CTA Chest W/WO Contrast IMPRESSION: No evidence of pulmonary embolism. Bilateral patchy infiltrates in a preferential peripheral distribution suggestive of pneumonitis associated with cold. Electronically Signed: Jeronimo Matthews MD at 13:07 EST , Service support ,
[2021-05-14 13:22] VITALS: BP 105/74; PULSE 128; RESP 23; O2SAT 93
[2021-05-14 15:00] VITALS: RESP 14
== END 2021-05-14 15:40 | disposition home or self-care (01) ==
PROVIDERS: Emergency Provider Emergency Medicine; PCP Family Medicine; Visit Provider Emergency Medicine
DX: U07.1 COVID-19 (principal); R06.00 Dyspnea, unspecified
CPT/HCPCS: 71045; 71275; 80048; 81001; 83605; 84484; 85025; 85379; 87040; 87149; 87426; 87635; 87804; 99282; J7030; Q9967; U0003; U0005

== ENCOUNTER 2021-08-04 17:27 | Outpatient (CLI) | payer MEDICARE, SELFPAY | END 2021-08-04 23:59 | disposition home or self-care (01) | PROVIDERS: PCP Family Medicine; Visit Provider Registered Nurse | DX: R30.0 Dysuria (principal) | CPT/HCPCS: 87086 ==

== ENCOUNTER → 2021-08-17 | Outpatient (CLI) | payer MEDICARE, SELFPAY ==
[2021-08-17 18:07] LABS: Absolute Lymphocyte Count 3.12 X10^3/uL (0.83-4.51); Absolute Neutrophil Count 6.2 X10^3/uL (2.0-7.7); Basophil# 0.07 X10^3/uL; Basophil% 0.7 % (0-1); Eosinophil# 0.09 X10^3/uL; Eosinophils% 0.9 % (0-5); Hematocrit 44.6 % (37-47); Hemoglobin 14.2 g/dL (12.0-15.0); Lymphocyte # 3.12 X10^3/ul (0.83-4.51); Lymphocyte % 30.9 % (19-41); Mean Corp Hgb Conc 31.8 g/dL (32-36); Mean Platelet Vol. 10.5 fl (6.2-12.0); Monocyte# 0.63 X10^3/uL; Monocyte% 6.2 % (0-10); NRBC Flagged by Analyzer 0 % (0-5); Neutrophil # 6.18 X10^3/uL (2.7-7.7); Neutrophil % 61.1 % (47-70); Platelet Count 318 K/mm3 (150-450); RBC Distribution Width CV 14.2 % (11.6-14.6); RBC Distribution Width SD 47.6 fl (35.1-43.9); White Blood Count 10.1 K/mm3 (4.4-11.0)
[2021-08-17 18:35] LABS: ALB/GLOB Ratio 0.8 RATIO (0.9-2.4); AST(SGOT) 18 U/L (15-37); Alanine Aminotransfer ALT/SGPT 26 U/L (13-56); Albumin, Serum 3.7 g/dL (3.2-5.0); Alkaline Phosphatase 87 U/L (45-117); Anion Gap 6 (5-15); BUN 25 mg/dL (7-18); BUN/Creat Ratio 21.2 RATIO (10-20); CRP 9.47 mg/L (0.0-3.0); Chloride 108 mmol/L (98-107); Creatinine, Serum 1.18 mg/dL (0.55-1.02); EST Glomerular Filtration Rate 47 mL/min (>60); Est Glom Filt Rate - Afr Amer 57 mL/min (>60); Globulin 4.4 g/dL (2.2-4.2); Glucose 154 mg/dL (74-106); Potassium 3.6 mmol/L (3.5-5.1); Protein, Total 8.1 g/dL (6.4-8.2); Rheumatoid Factor < 10.0 IU/mL (<15); Sodium Level 142 mmol/L (136-145)
[2021-08-17 18:39] LABS: Erythrocyte Sedimentation Rate 25 mm/hr (0-30)
[2021-08-18 10:21] LABS: Hepatitis B Surface Antibody Non-Reactive; Hepatitis B Surface Antigen Non-Reactive (Nonreactive); Hepatitis C Antibody Non-Reactive (Nonreactive)
[2021-08-19 19:24] LABS: ANTINUCLEAR ANTIBODIES DIRECT Negative (Negative)
[2021-08-20 12:52] LABS: CCP IgG Antibodies 20 units (0-19)
== END | disposition home or self-care (01) ==
LOC: MTLAB 14:08
PROVIDERS: PCP Family Medicine; Referring Provider Internal Medicine Rheumatology; Visit Provider Internal Medicine Rheumatology
DX: M06.4 Inflammatory polyarthropathy (principal); M19.041 Primary osteoarthritis, right hand; M17.0 Bilateral primary osteoarthritis of knee; Q66.70 Congenital pes cavus, unspecified foot; I10 Essential (primary) hypertension; H93.A2 Pulsatile tinnitus, left ear; Z85.3 Personal history of malignant neoplasm of breast
CPT/HCPCS: 36415; 80053; 85025; 85652; 86038; 86140; 86200; 86431; 86706; 86803; 87340

== ENCOUNTER → 2022-02-08 | Outpatient (CLI) | payer MEDICARE, SELFPAY ==
--- NOTE | 2022-02-08 13:54 | BI_ITS ---
MAMMOGRAPHY - BILATERAL SCREENING REASON FOR EXAM: Female, 81 years old. Routine annual screening examination. PERTINENT HISTORY: Personal history of breast cancer. Prior left lumpectomy. TECHNIQUE: Digital bilateral breast trish (3D mammographic acquisition) in the CC and MLO projections. 2-D mediolateral oblique (MLO) and craniocaudad (CC) views of both breasts were obtained. CAD: Full Field Digital Mammography with Computer Added Detection was performed. COMPARISON: Comparison is made with prior study of 02/05/2021 and 02/05/2020. FINDINGS: Breast Composition: The breasts are heterogeneously dense, which may obscure small masses. There are no dominant masses or suspicious calcifications. The patient is status post lumpectomy in the deep central medial aspect of the left breast. Stable postoperative changes. No other significant abnormalities are identified. There has been no significant change since the prior study. BI/SCRN MAMM (CAD)W/TRISH BILAT IMPRESSION: Stable bilateral screening mammogram. Yearly follow-up mammogram recommended. (A) ASSESSMENT CATEGORY: BIRADS Category 2: Benign. A letter regarding these results will be sent to the patient by the facility within 30 days. Approximately 10% of breast cancers are not detected by mammography. A normal mammogram should not delay biopsy of a clinically suspicious abnormality. [id number] Electronically Signed: Jeronimo Matthews MD at 14:30 EDT ,
== END | disposition home or self-care (01) ==
LOC: OPBI 13:53
PROVIDERS: PCP Family Medicine; Visit Provider Family Medicine
DX: Z12.31 Encounter for screening mammogram for malignant neoplasm of breast (principal)
CPT/HCPCS: 77063; 77067

== ENCOUNTER → 2022-06-10 | Outpatient (CLI) | payer MEDICARE, SELFPAY ==
--- NOTE | 2022-06-10 17:13 | RAD_ITS ---
INDICATION: BLOATING EXAMINATION/TECHNIQUE: X-RAY - XR Abdomen W/ Decub and/or Erect Views COMPARISON: FINDINGS: BOWEL GAS PATTERN: Non-obstructive. No bowel or stomach distention. FREE AIR: Not assessed on a single supine view. ORGANOMEGALY: Not seen. CALCIFICATIONS: No abnormal calcifications observed. LOWER CHEST: No acute pathology. BONES AND SOFT TISSUES: Levoscoliosis of the lumbar spine. RAD/Abd Inc Decub and/or Erect IMPRESSION: Non-obstructive bowel gas pattern. Electronically Signed: Gracia Marie MD at 6:53 EST ,
== END | disposition home or self-care (01) ==
LOC: MTRAD 17:10
PROVIDERS: PCP Family Medicine; Referring Provider Nurse Practitioner Family; Visit Provider Nurse Practitioner Family
DX: R14.0 Abdominal distension (gaseous) (principal)
CPT/HCPCS: 74019

== ENCOUNTER → 2023-02-02 | Outpatient (CLI) | payer MEDICARE, SELFPAY ==
[2023-02-02 18:23] LABS: Anion Gap 6 (5-15); BUN 24 mg/dL (7-18); BUN/Creat Ratio 22.9 RATIO (10-20); Calcium,Total 8.7 mg/dL (8.5-10.1); Chloride 111 mmol/L (98-107); Creatinine, Serum 1.05 mg/dL (0.55-1.02); EST Glomerular Filtration Rate 53 mL/min (>60); Est Glom Filt Rate - Afr Amer 64 mL/min (>60); Glucose 130 mg/dL (74-106); Potassium 3.6 mmol/L (3.5-5.1); Sodium Level 142 mmol/L (136-145)
== END | disposition home or self-care (01) ==
LOC: MTLAB 14:37
PROVIDERS: PCP Family Medicine; Referring Provider Family Medicine; Visit Provider Family Medicine
DX: Z00.00 Encounter for general adult medical examination without abnormal findings (principal)
CPT/HCPCS: 36415; 80048

== ENCOUNTER → 2023-02-10 | Outpatient (CLI) | payer MEDICARE, SELFPAY ==
--- NOTE | 2023-02-10 13:09 | BI_ITS ---
MAMMOGRAPHY - BILATERAL SCREENING REASON FOR EXAM: Female, 82 years old. Routine annual screening examination. PERTINENT HISTORY: Personal history of breast cancer. Prior left lumpectomy. TECHNIQUE: Digital bilateral breast trish (3D mammographic acquisition) in the CC and MLO projections. 2-D mediolateral oblique (MLO) and craniocaudad (CC) views of both breasts were obtained. CAD: Full Field Digital Mammography with Computer Added Detection was performed. COMPARISON: Comparison is made with prior examination of February 08, 2022 and February 05, 2021. FINDINGS: Breast Composition: The breasts are heterogeneously dense, which may obscure small masses. There are no dominant masses or suspicious calcifications. Once again, the patient is status post lumpectomy in the deep central medial aspect of the left breast with resultant postoperative scarring and deformity of the left breast. This is unchanged. No other significant abnormalities are identified. There has been no significant change since the prior study. BI/SCRN MAMM (CAD)W/TRISH BILAT IMPRESSION: Stable bilateral screening mammogram. Yearly follow-up mammogram recommended. (A) ASSESSMENT CATEGORY: BIRADS Category 2: Benign. A letter regarding these results will be sent to the patient by the facility within 30 days. Approximately 10% of breast cancers are not detected by mammography. A normal mammogram should not delay biopsy of a clinically suspicious abnormality. [id number] Electronically Signed: Jeronimo Matthews MD at 15:21 EDT ,
== END | disposition home or self-care (01) ==
LOC: OPBI 13:07
PROVIDERS: PCP Family Medicine; Referring Provider Family Medicine; Visit Provider Family Medicine
DX: Z12.31 Encounter for screening mammogram for malignant neoplasm of breast (principal)
CPT/HCPCS: 77063; 77067

== ENCOUNTER → 2023-05-16 | Outpatient (CLI) | payer MEDICARE, SELFPAY ==
--- NOTE | 2023-05-16 15:05 | RAD_ITS ---
STUDY: X-RAY LEFT FOOT, FOURTH TOE REASON FOR EXAM: Female, 83 years old. 4TH TOE INJURY TECHNIQUE: 3 view(s) of the toe were obtained. COMPARISON: None. FINDINGS: Normal visualized metatarsus. Normal metatarsophalangeal (M.T.P) joint. Normal interphalangeal joints. Nondisplaced transverse fracture at the base of the proximal phalanx of the fourth toe. Soft tissue swelling. RAD/Toe(s) Min 2 Views IMPRESSION: Nondisplaced transverse fracture at the base of the proximal phalanx of the fourth toe. Soft tissue swelling. Electronically Signed: Jeronimo Matthews MD at 15:40 EST ,
--- OUTSIDE RECORDS SUMMARY | 2023-05-16 15:44 | XMS RPT_ITS | CCD ---
Author Name Unknown Address [address] [place] [address] Organization [facility] Care Team Providers Care [employer] Name Role Phone ADRIANNE AVILA Primary Care Unavailable CRISTIANA MARC Attending Unavailable Allergies Allergy Classification Reported Allergen(s) Allergy Type Date of Onset Reaction(s) Facility (1 source) Acetaminophen; Translations: [ACETAMINOPHEN] Drug Allergy 6 [facility] Rep[facility] (1 source) Adhesive agent; Translations: [ADHESIVE] Propensity to adverse reactions to drug (disorder) 6 [facility] (1 source) diazePAM; Translations: [DIAZEPAM] Drug Allergy 6 [facility] (1 source) Gelatin; Translations: [GELATIN] Drug Allergy 6 [facility] (1 source) Lactase; Translations: [LACTASE] Drug Allergy 6 [facility] (1 source) Lactose; Translations: [LACTOSE] Drug Allergy 7 [facility] (1 source) Latex; Translations: [LATEX] Propensity to adverse reactions to drug (disorder) 6 [facility] (1 source) Sulfonamides (Antibiotic); Translations: [SULFA (SULFONAMIDE ANTIBIOTICS)] Propensity to adverse reactions to drug (disorder) 6 [facility] Problems Problem Classification Problem Date Documented Da te Episodic/Chronic Allergic reactions (1 source) Anaphylactic shock, unspecified, initial encounter; Translations: [Anaphylaxis, initial encounter] Onset: 05-05-2023 Episodic Results Test Name Value Interpretation Reference Range Facil ity Encounters Encounter Date Encounter Type Care Provider Facility Start: 05-05-2023 End: 05-06-2023 Emergency department patient visit ADRIANNE AVILA [facility] Payers Date Payer Category Payer Medicare [id number] Progress note 07-14-2020 Note Date & Type Note Facility 07-14-2020 Note HNO ID: [id number] Author: Lotus (Pt) MARISA Renteria Service: ? Author Type: Physical Therapist Type: Progress Notes Filed: 07/14/2020 5:41 PM Note Text: Episode Visit Count: 7 Therapist That Will Oversee The Plan Of Care: Sandy Renteria Start of Care Date: 06/17/20 Onset Date: 05/01/20 Plan of Care Certification Date: 06/17/20 Next Certification Due Date: 08/16/20 REHABILITATION AND SPORTS THERAPY PHYSICAL THERAPY DISCONTINUANCE OF CARE PLAN OF CARE UPDATE: Assessment: Aziza Dougherty is discontinued from Physical Therapy services due to goal achievement and maximal benefit. and Patient/Client declining further intervention. She has made good progress since initial evaluation and appears ready to be done with PT. Patient was seen for 7 visits from Start of Care Date: 06/17/20 to 07/14/2020 and treatment included: Therapeutic exercise, Manual therapy, Therapeutic activities, Self-skilled nursing management, Gait training and Patient/Family/Caregiver Education. Goals for Episode of Care: created on 06/17/20 through 08/16/20 [place] in home exercise program. Patient will increase active ROM of R foot AND ankle to wnl, symmetrical to allow pt to to improve postural alignment and to improve gait mechanics / gait pattern . Patient will demonstrate increase in R LE strength to 5/5 during manual muscle testing in order to improve function for basic self-care tasks, home management tasks, light functional tasks and prior functional tasks. Normal gait. Reciprocal stair negotiation. Patient will increase balance to 15 seconds for single limb stance on RLE and LLE. Patient Goals: recover AND get back to normal SUBJECTIVE: Patient Reason for Visit: doing well without foot pain. pt happy to report I'm free . had f/u with ortho last week AND they released her. she's been walking without AD wearing regular shoes without any problem and she drove for the first time today since 04/28/20. pt reports said she probably doesn't need any more PT. she wants to know what excercises to do and she's ready to be done. Pain: Pain Pain Location: Foot - Right PROMIS Scales Higher is Better 06/17/2020 Phys Func - Score 22 (severe dysfunction) Phys Func - Percentile 0 % Social Roles - Score 43 (mild dysfunction) Social Role - Percentile 24 % GH Physical - Score 44.9 GH Physical - Percentile 31 % GH Mental - Score Incomplete Self-Eff Symptom - Score 43 (Average) Self-Eff Symptom - Percentile 24 % T-scores: mean of general population = 50. 5 points is clinically meaningfully difference Percentiles provide an indication of how the patient's score ranks in relation to the general population. Higher percentile rankings indicate better function/quality of life. 50th percentile is the average of the general population and indicates half of respondents had a worse score. Lower is Better 06/17/2020 Fatigue - Score 44 (within normal limits) Fatigue - Percentile 73 % T-scores: mean of general population = 50. 5 points is clinically meaningfully difference Percentiles provide an indication of how the patient's score ranks in relation to the general population. Higher percentile rankings indicate better function/quality of life. 50th percentile is the average of the general population and indicates half of respondents had a worse score. OBJECTIVE MEASURES WITH LEVEL OF FUNCTION: Ankle Observations Weight Bearing Status: WBAT R Swelling: mild swelling R foot AND ankle LE AROM R LE AROM: R ankle AND LE wnl AND painfree LE Strength R LE Strength: grossly 4+ to 5/5 except PF weakness as noted below R Ankle Plantar Flexion: 3+/5 (3+ to 4-/5, limited by calf weakness AND foot/toe pain) Gait Weight Bearing Status: FWB Gait: Independent Gait Device: None Gait Observation: good gait, minimal to no gait deviation Stairs Device: Rail Stairs: reciprocal Balance Static Standing Balance: Single Leg Stance Single Leg Stance: 5-8 seconds L/R (slight difficulty R vs L) Functional Performance Test Results Assistive Device: None Timed Up and Go (sec): 10 sec [facility] Basic Mobility Short Form Difficulty walking around inside a building (50 ft, or 16 meters)on the same level (hospital hallway, around a doctor's office or supermarket): none Difficulty walking on an uneven surface (grass, dirt road or sidewalk, brick walkway, sidewalks with curbs and driveway cuts): none Difficulty walking several blocks: none How much help from another person do you currently need when moving to and from a toilet: none How much help from another person do you currently need when climbing 3-5 steps with a railing: none How much help from another person do you currently need when moving to and from a bed to a chair (including a wheelchair): none [facility] Ambulatory Basic Mobility Short Form Total Score: 24 TREATMENT: Therapeutic Exercise: 1: standing heel raises 10xB, SL 5-10xL/R (R limi (more content not included)... [facility] Progress note 07-10-2020 Note Date & Type Note Facility 07-10-2020 Note HNO ID: [id number] Author: Abelardo Agustin PT ASSIST Service: ? Author Type: [employer] Type: Progress Notes Filed: 07/10/2020 3:32 PM Note Text: Episode Visit Count: 6 Therapist That Will Oversee The Plan Of Care: Sandy Renteria Start of Care Date: 06/17/20 Onset Date: 05/01/20 Plan of Care Certification Date: 06/17/20 Next Certification Due Date: 08/16/20 Patient Identified by Name and Date of : Yes REHABILITATION AND SPORTS THERAPY PHYSICAL THERAPY TREATMENT NOTE ASSESSMENT: Aziza Dougherty demonstrated improvements in gait , right foot mechanics,with/without assistive device in shoes. The patient will continue to benefit from ongoing skilled physical therapy for await any new orders post follow up with trial management associate, 07/11 , recheck next visit PLAN FOR NEXT VISIT: await any new orders post follow up with trial management associate, 07/11 , recheck next visit SUBJECTIVE: Patient Reason for Visit: pt no complaints increased pain in right foot post last PT session Pain: Pain Pain Level: 0 Pain Location: Foot - Right Post Treatment Pain Post Treatment Pain Level: No Change OBJECTIVE MEASURES WITH LEVEL OF FUNCTION: TREATMENT: Therapeutic Exercise: 2: strengthen scapula and RTC muscles as tolerated , maintain ROM all planes bilateral shoulders 3: long sitting plantar flexion , dorsi flexion green tb r/l 10 x 2 each Skilled Intervention: Patient was educated in proper exercise technique and purpose for exercises. Skilled judgment was provided in selection of appropriate interventions. Manual Therapy: 1: stm of plantar fascia, right longitudinal arch and heel , 10 min Skilled Intervention: Manual skills to improve joint mobility, ROM, and decrease pain. Utilized anatomy knowledge of the therapist, and assessment of patient's response to intervention. Gait Trainin: pre ambulation without boot weight shift right / left 5 sec x 5 x 2 2: with spc rigth and left hand on mat step through left to toe off right 5 x 2 3: gait with spc without walking boot 20 ' x 2 4: gait without assistive device, in shoes 25 ' x 3 Skilled Intervention: Reviewed foot mechanics with heel strike and toe off Billing: [place]: Therapeutic Exercise (02643): 1:1 time: 15 minutes (1 unit: 8-22 mins) Manual Therapy (25092): 1:1 time: 10 minutes (1 unit: 8-22 mins) Gait Training (05546): 1:1 time: 15 minutes (1 unit: 8-22 mins) Total time / Length of visit: 40 minutes Abelardo Agustin PTA [facility] Progress note 07-07-2020 Note Date & Type Note Facility 07-07-2020 Note HNO ID: [id number] Author: Abelardo Agustin PT ASSIST Service: ? Author Type: [employer] Type: Progress Notes Filed: 07/07/2020 6:30 PM Note Text: Episode Visit Count: 5 Therapist That Will Oversee The Plan Of Care: Sandy Renteria Start of Care Date: 06/17/20 Onset Date: 05/01/20 Plan of Care Certification Date: 06/17/20 Next Certification Due Date: 08/16/20 Patient Identified by Name and Date of : Yes REHABILITATION AND SPORTS THERAPY PHYSICAL THERAPY TREATMENT NOTE ASSESSMENT: Aziza Dougherty demonstrated improvements in gait and stability in right foot and ankle with gait with single point cane without right walking boot. The patient will continue to benefit from ongoing skilled physical therapy for assess progresson of gait without right walking boot, strengthen right le and address ROM right ankle PLAN FOR NEXT VISIT: assess progresson of gait without right walking boot, strengthen right le and address ROM right ankle SUBJECTIVE: Patient Reason for Visit: pt reports some increased swelling in right le vs left Pain: Pain Pain Level: 0 Pain Location: Foot - Right Description: (swelling) Frequency: Intermittent OBJECTIVE MEASURES WITH LEVEL OF FUNCTION: TREATMENT: Therapeutic Exercise: 1: nustep level 4 ue/le 5 min 2: long sitting manual heel cord and calf stretch 30 sec x 3 3: long sitting right ankle eversion inversion plantar flexion, dorsiflexion orange tb eversion /inversion , green tb Skilled Intervention: Patient was educated in proper exercise technique and purpose for exercises. Skilled judgment was provided in selection of appropriate interventions. Gait Trainin: pre ambulation without boot weight shift right / left 5 sec x 5 x 2 2: with spc rigth and left hand on mat step through left to toe off right 5 x 2 3: gait without right walking boot with spc and opposite hand on mat 6 ' x 4 4: gait with spc without walking boot 20 ' x 2 5: discussed waling without right walking boot short household distances , but to use walking boot for kitchen activities and longer walks Skilled Intervention: See above for education Billing: [place]: Therapeutic Exercise (25103): 1:1 time: 20 minutes (1 unit: 8-22 mins) Gait Training (21286): 1:1 time: 25 minutes (2 units: 23-37 mins) Total time / Length of visit: 45 minutes Abelardo Agustin PTA [facility] Progress note 07-03-2020 Note Date & Type Note Facility 07-03-2020 Note HNO ID: [id number] Author: Abelardo Wise) MARISA Agustin ASSIST Service: ? Author Type: [employer] Type: Progress Notes Filed: 07/03/2020 2:28 PM Note Text: Episode Visit Count: 4 Therapist That Will Oversee The Plan Of Care: Sandy Renteria Start of Care Date: 06/17/20 Onset Date: 05/01/20 Plan of Care Certification Date: 06/17/20 Next Certification Due Date: 08/16/20 Patient Identified by Name and Date of : Yes REHABILITATION AND SPORTS THERAPY PHYSICAL THERAPY TREATMENT NOTE ASSESSMENT: Aziza Dougherty demonstrated improvements in stability in right foot with single leg press on shuttle and with standing weight shift into right foot without use of walking boot. The patient will continue to benefit from ongoing skilled physical therapy for as tolerated increase weight bearing into right foot without boot if no adverse symptoms over the week end PLAN FOR NEXT VISIT: as tolerated increase weight bearing into right foot without boot if no adverse symptoms over the week end SUBJECTIVE: Patient Reason for Visit: pt reports getting around the house , difficulty with standing in shower Pain: Pain Pain Level: 0 OBJECTIVE MEASURES WITH LEVEL OF FUNCTION: TREATMENT: Therapeutic Exercise: 1: bike pedals 100 degrees seat 2 level 2 5 min 2: long sitting right ankle eversion inversion plantar flexion, dorsiflexion orange tb ,eversion and inversion given for HEP 3: left sidelying right slr 10 x 2 4: prone slr 10 x 2 r/l 5: shuttle bilateral leg press b2 bands , 3 bands 1 min x 2 6: *standing hand in hand weight shift left to right in stocking feet 5 second holds, 7: advised patient to bring in right shoe next visit and to begin weight shift left to right on Tuesday if no increased symptoms Skilled Intervention: Patient was educated in proper exercise technique and purpose for exercises. Reviewed and educated patient on additions/changes for home exercise program as above (*) Skilled judgment was provided in selection of appropriate interventions. Gait Trainin: gait with walking boot right le without assistive device 25' x 4 Skilled Intervention: Verbal cues for swing through left Billing: [place]: Therapeutic Exercise (79333): 1:1 time: 40 minutes (3 units: 38-52 mins) Gait Training (26984): 1:1 time: 7 minutes (no charge) Total time / Length of visit: 47 minutes Abelardo Agustin PTA [facility] Progress note 06-30-2020 Note Date & Type Note Facility 06-30-2020 Note HNO ID: [id number] Author: Abelardo Agustin PT ASSIST Service: ? Author Type: [employer] Type: Progress Notes Filed: 06/30/2020 2:40 PM Note Text: Episode Visit Count: 3 Therapist That Will Oversee The Plan Of Care: Sandy Renteria Start of Care Date: 06/17/20 Onset Date: 05/01/20 Plan of Care Certification Date: 06/17/20 Next Certification Due Date: 08/16/20 Patient Identified by Name and Date of : Yes REHABILITATION AND SPORTS THERAPY PHYSICAL THERAPY TREATMENT NOTE ASSESSMENT: Aziza Dougherty demonstrated improvements in gat without assistive device with walking boot right lower extremity The patient will continue to benefit from ongoing skilled physical therapy for assess gait with walking boot right without assistive device, progress strength and ROM right foot, ankle, and hip if patient tolerates trial gait without boot as tolerated PLAN FOR NEXT VISIT: assess gait with walking boot right without assistive device, progress strength and ROM right foot, ankle, and hip if patient tolerates trial gait without boot as tolerated SUBJECTIVE: Patient Reason for Visit: pt reports walking boot rubs on top of right soot , I wish I could walk without the boot Pain: Pain Pain Level: 0 Pain Location: Foot - Right Frequency: Intermittent Post Treatment Pain Post Treatment Pain Level: No Change OBJECTIVE MEASURES WITH LEVEL OF FUNCTION: TREATMENT: Therapeutic Exercise: 1: long sitting manual heel cord stretch 20 sec x 4 right 2: *long sitting right ankle eversion inversion plantar flexion, dorsiflexion orange tb ,eversion and inversion given for HEP 3: shuttle bilateal leg press 2 bands 1 min x 2, slight increase in weight bearing right le 4: *left sidelying right slr 10 x 2 Skilled Intervention: Patient was educated in proper exercise technique and purpose for exercises. Reviewed and educated patient on additions/changes for home exercise program as above (*) Skilled judgment was provided in selection of appropriate interventions. Provided written instruction for home exercise program to facilitate proper performance and compliance. Gait Trainin: gait with wheeled walker and walking boot on right foot, verbal cues to increase heel toe mechanics , as patient is PWB into right heel only 15 ' x 4 2: gait with walking boot right le with spc 2 point step through gait , 25 ' x 3 3: gait with walking boot right le without assistive device 25' x 2 4: discussed looking up during gait vs continuously scanning floor, with gait , sizing a cane , and step through gait, advised patient it would be ok to walk household distances without assistive device with use of walking boot also added heel lift to left shoe for gait with walking boot Skilled Intervention: See above for education Billing: [place]: Therapeutic Exercise (76768): 1:1 time: 30 minutes (2 units: 23-37 mins) Gait Training (08809): 1:1 time: 15 minutes (1 unit: 8-22 mins) Total time / Length of visit: 45 minutes Abelardo Agustin PTA [facility] Progress note 06-24-2020 Note Date & Type Note Facility 06-24-2020 Note HNO ID: [id number] Author: Abelardo Agustin PT ASSIST Service: ? Author Type: [employer] Type: Progress Notes Filed: 06/24/2020 4:17 PM Note Text: Episode Visit Count: 2 Therapist That Will Oversee The Plan Of Care: Sandy Renteria Start of Care Date: 06/17/20 Onset Date: 05/01/20 Plan of Care Certification Date: 06/17/20 Next Certification Due Date: 08/16/20 Patient Identified by Name and Date of : Yes REHABILITATION AND SPORTS THERAPY PHYSICAL THERAPY TREATMENT NOTE ASSESSMENT: Aziza Dougherty demonstrated difficulty with normalizing PWB right foot, with and without verbal cues and improvements in decreased swelling right ankle post PT session The patient will continue to benefit from ongoing skilled physical therapy for assess transition from partial weight bearing to weight bearing as tolerated if patient tolerates WBAT, then increase frequency to 2 x , address toe off and edema control as needed PLAN FOR NEXT VISIT: assess transition from partial weight bearing to weight bearing as tolerated if patient tolerates WBAT, then increase frequency to 2 x , address toe off and edema control as needed SUBJECTIVE: Patient Reason for Visit: pt reports increased swelling in bridge of right foot, reports has been walking around house without walker, also states she is partial weight bearing until 06/27/20 Pain: Pain Pain Level: 0 Pain Location: Foot - Right Description: (swollen ) Frequency: Intermittent Post Treatment Pain Post Treatment Pain Level: No Change OBJECTIVE MEASURES WITH LEVEL OF FUNCTION: TREATMENT: Therapeutic Exercise: 1: long sitting manual heel cord stretch 20 sec x 4 right 2: long sitting toe scrunch 5 x 2 , toe extension 5 x 2 3: long sitting write the alphabet with right ankle motions Skilled Intervention: Patient was educated in proper exercise technique and purpose for exercises. Reviewed and educated patient on additions/changes for home exercise program as above (*) Skilled judgment was provided in selection of appropriate interventions. Provided written instruction for home exercise program to facilitate proper performance and compliance. Manual Therapy: 1: pt supine with legs elevated on wedge , lymphatic massage 12 min Skilled Intervention: Manual skills to improve joint mobility, ROM, and decrease pain. Utilized anatomy knowledge of the therapist, and assessment of patient's response to intervention. Gait Trainin: gait with wheeled walker and walking boot on right foot, verbal cues to increase heel toe mechanics , as patient is PWB into right heel only 15 ' x 4 Skilled Intervention: See above for education Billing: [place]: Therapeutic Exercise (25775): 1:1 time: 22 minutes (1 unit: 8-22 mins) Manual Therapy (46778): 1:1 time: 12 minutes (1 unit: 8-22 mins) Gait Training (33034): 1:1 time: 8 minutes (1 unit: 8-22 mins) Total time / Length of visit: 44 minutes Abelardo Agustin PTA [facility] Progress note 06-17-2020 Note Date & Type Note Facility 06-17-2020 Note HNO ID: [id number] Author: Lotus (Pt) MARISA Renteria Service: ? Author Type: Physical Therapist Type: Progress Notes Filed: 06/17/2020 2:20 PM Note Text: Episode Visit Count: 1 Therapist That Will Oversee The Plan Of Care: Sandy Renteria Start of Care Date: 06/17/20 Onset Date: 05/01/20 Plan of Care Certification Date: 06/17/20 Next Certification Due Date: 08/16/20 Patient Identified by Name and Date of : Yes REHABILITATION AND SPORTS THERAPY PHYSICAL THERAPY EVALUATION PLAN OF CARE: Assessment: Aziza Dougherty presents with the diagnosis of R foot fractures (2nd, 3rd AND 4th metatarsals) from slipping AND falling on her steps at home 7 weeks ago. She initially went to ED where she was casted in a hard splint for 1 month, NWB with a knee walker. She then saw trial management associate in [place] and was transitioned to a boot which she wore 15/11 and remained NWB for another 3 weeks. She then had f/u this past Tuesday and was advised to progress to PWB in the boot and she was told to wear the boot just when she's walking now. She has since progressed to a WW for limited household ambulation. She presents with impairments of R foot swelling with minimal pain, limited ambulation AND mobility due to PWB restrictions and impaired ADLs AND activity tolerance. She may benefit from skilled therapy services to reduce swelling in R foot, improve ROM AND strength, progress gait AND overall mobility for improved ADLs AND return to PLOF. Prognosis: Good Good due to: current objective clinical presentation;good overall health status;acuteness of condition;positive past response to therapy;within-session changes at evaluation;good support system/ coping skills(good motivation) Goals for Episode of Care: created on 06/17/20 through 08/16/20 [place] in home exercise program. Patient will increase active ROM of R foot AND ankle to wnl, symmetrical to allow pt to to improve postural alignment and to improve gait mechanics / gait pattern . Patient will demonstrate increase in R LE strength to 5/5 during manual muscle testing in order to improve function for basic self-care tasks, home management tasks, light functional tasks and prior functional tasks. Normal gait. Reciprocal stair negotiation. Patient will increase balance to 15 seconds for single limb stance on RLE and LLE. Patient Goals: recover AND get back to normal Planned Interventions, Frequency, and Duration: Current Frequency: 1x/week(1-2x/wk) Duration: 8 weeks Total Number of Visits Planned: 10 Planned Treatment Interventions: Therapeutic exercise (18204);Neuromuscular re-education (51825);Manual therapy (71190);Therapeutic activities (12563);Self-skilled nursing management (11054);Gait Training (82619);Patient/Family/Caregiver Education PLAN FOR NEXT VISIT: address R foot AND ankle ROM/strength, progress gait Patient demonstrates good understanding of plan of care and treatment. The above goals and plan of care were discussed and agreed upon by patient/family. SUBJECTIVE: Aziza Dougherty is a 80 year old female seen today for rehab/gait-training s/p R foot fx. pt reports minimal pain other than intermittent swelling which further aggravates the bone on the top of her foot. she reports pre-existing issues with bony feet AND difficulty with shoes rubbing on her foot bones. Pt has seen Dr Beltrán in the past for other foot issues (including bunion AND neuroma removals on L foot) and was diagnosed with Raynauds several years ago, pt says she can't use ice on her foot/ankle due to the Raynauds. Patient Goals: recover AND get back to normal Functional Limitations: walking;stair negotiation;lifting;heavy exertion;physical activities;recreational activities;driving;cleaning;cooking;weigh t bearing;carrying Prior Level of Function: Independent without limitations Relevant History Medical Conditions: Circulation / Vascular Issues;Fracture(Raynauds, PAD) Employment: Retired Home Environment Patient Lives With: Spouse Home Type: First Floor Set Up Number Of Stairs To Bed/Bath: laundry AND shower in basement Stairs to Bed/Bath with: Unilateral Rail Equipment Owned: Wheeled Walker;Cane Intake Information: Prescription present Previous Treatment: Immobilizer/brace? Falls Interview: Fall with injury in the last year;Uses an assistive device Falls Intervention: More thorough falls assessment to be performed;Instructed patient on safety and use of assistive device and awareness in regards to falls prevention. Pain: Pain Pain Level: 0(no pain at rest, minimal pain in general 1/10 at worst) Pain Location: Foot - Right(dorsal foot) Description: Dull;Sore Frequency: Intermittent PROMIS Scales Higher is Better 06/17/2020 Phys Func - Score 22 (severe dysfunction) Phys Func - Percentile 0 % Social Roles - Score 43 (mild dysfunction) Social Role - Percentile 24 % GH Physical - Score 44.9 GH Physical - Percentil (more content not included)... [facility] Clinical Note 05-27-2020 Note Date & Type Note Facility 05-27-2020 Note Patient Outreach ([facility] OCC3) AZIZA DOUGHERTY ([id number]) 1940 F Date Time Provider Department 05/27/20 JULIETTE ROJAS During your visit today, we recorded the following information about you: Allergies As of Date: 05/27/2020 Noted Allergy Reaction ACETAMINOPHEN 05/29/2015 14 - Other: See Comments Comments: Liver Problems ADHESIVE 05/29/2015 2 - Rash DAIRY AID (LACTASE) 05/29/2015 6 - Diarrhea GELATIN 05/29/2015 10 - Anaphylaxis LACTOSE 08/04/2016 8 - GI Upset LATEX 05/29/2015 2 - Rash SULFA (SULFONAMIDE ANTIBIOTICS) 05/29/2015 9 - Itching VALIUM (DIAZEPAM) 05/29/2015 14 - Other: See Comments Comments: Hyper Date Reviewed: 05/01/2020 Reviewed by: Kathy Omalley) PITER Shi - Fully Assessed Order(s):SARS-COVID VACCINE 1ST DOSE APPT [[id number]] Order #: [id number] FUTURE Prescriptions as of 05/27/2020 Si-DAY VAGINAL 2 % CREAM Apply to affected area twice * AMLODIPINE 5 MG TABLET Take 5 mg by mouth once daily. IBUPROFEN 200 MG TABLET Take 200 mg by mouth. LOSARTAN 100 MG-HYDROCHLOROTH* Take 1 tablet by mouth once d* LISINOPRIL 10 MG-HYDROCHLOROT* Take 1 tablet by mouth once d* MELOXICAM 15 MG TABLET Take 1 tablet by mouth once d* ASPIRIN 81 MG TABLET,DELAYED * Take 1 tablet by mouth once d* COQ-10 ORAL Take by mouth. BENZONATATE 100 MG CAPSULE Take 1 capsule by mouth once * Problem List As Of Date 05/27/2020 Noted Resolved Raynaud's phenomenon without gangrene [I73.00] 08/04/2016 PAD (peripheral artery disease) (HCC) [I73.9] 08/04/2016 Letter Text Encounter Status:Closed by [employer], PRODUSER on 05/30/20 [facility] Summary Purpose Family History No Family History Records FoundNo Family History Records FoundNo Family History Records Found Advance Directives No Advanced Directives Records FoundNo Advanced Directives Records FoundNo Advanced Directives Records Found Additional Source Comments INFORMATION SOURCE (unrecogn ized section and content) DATE CREATED AUTHOR AUTHOR'S ORGANIZ ATION 05/19/2021 [facility] DATE CREATED AUTHOR AUTHOR'S ORGANIZ ATION 05/09/2023 [facility] FOR RECORDS PERTAINING TO PATIENTS WHO ARE OR HAVE BEEN ENROLLED IN A CHEMICAL DEPENDENCY/SUBSTANCEABUSE PROGRAM, SOME INFORMATION MAY BE OMITTED. This clinical summary was aggregated from multiple sources. Caution should be exercised in using it in the provision of clinical care. This summary normalizes information from multiple sources, and as a consequence, information in this document may materially change the coding, format and clinical context of patient data. In addition, data may be omitted in some cases. CLINICAL DECISIONS SHOULD BE BASED ON THE PRIMARY CLINICAL RECORDS. [facility]. provides no warranty or guarantee of the accuracy or completeness of information in this document.
== END | disposition home or self-care (01) ==
LOC: MTRAD 15:01
PROVIDERS: PCP Family Medicine; Referring Provider Family Medicine; Visit Provider Family Medicine
DX: S99.922A Unspecified injury of left foot, initial encounter (principal)
CPT/HCPCS: 73660

== ENCOUNTER → 2023-08-11 | Outpatient (CLI) | payer MEDICARE, SELFPAY ==
[2023-08-11 18:34] LABS: Anion Gap 5 (5-15); BUN 26 mg/dL (7-18); BUN/Creat Ratio 22.2 RATIO (10-20); Calcium,Total 9.2 mg/dL (8.5-10.1); Chloride 109 mmol/L (98-107); Creatinine, Serum 1.17 mg/dL (0.55-1.02); EST Glomerular Filtration Rate 47 mL/min (>60); Est Glom Filt Rate - Afr Amer 57 mL/min (>60); Glucose 102 mg/dL (74-106); Sodium Level 142 mmol/L (136-145)
== END | disposition home or self-care (01) ==
LOC: MFPLAB 15:07
PROVIDERS: PCP Family Medicine; Visit Provider Family Medicine
DX: I10 Essential (primary) hypertension (principal)
CPT/HCPCS: 36415; 80048

== ENCOUNTER → 2023-08-16 | Outpatient (CLI) | payer MEDICARE, SELFPAY ==
--- NOTE | 2023-08-16 12:58 | ECHOD_ITS ---
Reason For Study: CHEST PAIN Procedure This was a 2D Doppler, Color Flow transthoracic echocardiogram. Exam performed in department. Left Ventricle Normal LV size. The estimated ejection fraction is 60 %. No evidence for diastolic dysfunction. No regional wall motion abnormalities noted. Right Ventricle Normal RV size. Normal systolic function. Atria Normal left atrium. Normal right atrium. No doppler evidence for ASD. Mitral Valve There is mild mitral annular calcification. There is no mitral valve stenosis. Trivial mitral valve insufficiency. Tricuspid Valve There is no tricuspid stenosis. Trivial tricuspid valve insufficiency. Unable to estimate RV systolic pressure due to insufficient tricuspid regurgitant envelope. Aortic Valve Aortic sclerosis, no stenosis. There is no aortic stenosis. Mild (1+) aortic valve insufficiency. Pulmonic Valve There is no pulmonic valvular stenosis. No pulmonic valve insufficiency. Great Vessels Normal aortic root. Pericardium/Pleural No pericardial effusion. MMode/2D Measurements & Calculations LVIDd: 4.1 cm IVSd: 1.1 cm LVOT diam: 1.8 cm LVIDs: 2.0 cm LVPWd: 0.89 cm LVOT area: 2.5 cm2 RVDd: 3.1 cm FS: 52.5 % Ao root diam: 3.1 cm LAV(MOD-bp): 35.9 ml LVAd ap4: 21.2 cm2 LAV(MOD-bp) Indexed: 21.1 ml/m2 LVLd ap4: 6.7 cm LAV(MOD-sp2): 48.1 ml EDV(MOD-sp4): 53.6 ml LAV(MOD-sp4): 27.1 ml EDV(sp4-el): 56.5 ml LVAs ap4: 10.3 cm2 LVLs ap4: 5.3 cm ESV(MOD-sp4): 16.5 ml ESV(sp4-el): 17.0 ml EF(MOD-sp4): 69.2 % EF(sp4-el): 69.9 % LVAd ap2: 19.8 cm2 SV(MOD-sp4): 37.1 ml SV(MOD-sp2): 33.2 ml LVLd ap2: 6.3 cm EDV(MOD-sp2): 50.3 ml EDV(sp2-el): 52.5 ml LVAs ap2: 10.4 cm2 LVLs ap2: 5.5 cm ESV(MOD-sp2): 17.1 ml ESV(sp2-el): 16.7 ml EF(MOD-sp2): 66.0 % SV(sp4-el): 39.5 ml LA dimension(2D): 3.1 cm LA A4 area: 13.5 cm2 RA A4 area: 12.6 cm2 TAPSE: 2.1 cm Time Measurements MV dec time: 0.27 sec Doppler Measurements & Calculations MV E max bret: 74.8 cm/sec Lat Peak E' Bret: 8.5 cm/sec Med Peak E' Bret: 9.9 cm/sec MV A max bret: 109.8 cm/sec E/E' lat: 8.8 E/E' med: 7.6 MV E/A: 0.68 Ao V2 max: 171.7 cm/sec LV V1 max: 139.3 cm/sec MV dec slope: 280.5 cm/sec2 Ao max P.8 mmHg LV V1 max P.8 mmHg Ao V2 mean: 120.9 cm/sec LV V1 mean P.5 mmHg Ao mean P.6 mmHg LV V1 mean: 84.2 cm/sec Ao V2 VTI: 36.9 cm LV V1 VTI: 28.9 cm AV (velocity ratio): 0.78 ANNALISE(I,D): 1.9 cm2 ANNALISE(V,D): 2.0 cm2 SV(LVOT): 71.2 ml PA V2 max: 134.8 cm/sec TR max bret: 267.5 cm/sec PA max PG (full): 4.4 mmHg TR max P.6 mmHg ECHO/Echo Complete Interpretation Summary The estimated ejection fraction is 60 %. No evidence for diastolic dysfunction. Trivial mitral valve insufficiency. Mild (1+) aortic valve insufficiency. Ordering Physician: Ozzie Benjamin Referring Physician: Vivek Logan Performed By: Darlene Mack RDCS
== END | disposition home or self-care (01) ==
LOC: CVS 12:58
PROVIDERS: PCP Family Medicine; Referring Provider Internal Medicine Cardiovascular Disease; Visit Provider Internal Medicine Cardiovascular Disease
DX: R07.9 Chest pain, unspecified (principal); I49.9 Cardiac arrhythmia, unspecified
CPT/HCPCS: 93306

== ENCOUNTER → 2024-02-08 | Outpatient (CLI) | payer MEDICARE, SELFPAY ==
[2024-02-08 17:53] LABS: Anion Gap 3 (5-15); BUN 22 mg/dL (7-18); BUN/Creat Ratio 19.8 RATIO (10-20); Calcium,Total 9.1 mg/dL (8.5-10.1); Chloride 110 mmol/L (98-107); Cholesterol 189 mg/dL (200); Creatinine, Serum 1.11 mg/dL (0.55-1.02); EST Glomerular Filtration Rate 50 mL/min (>60); Est Glom Filt Rate - Afr Amer 60 mL/min (>60); Glucose 154 mg/dL (74-106); High Density Lipoprotein 53 mg/dL; Potassium 3.9 mmol/L (3.5-5.1); Sodium Level 142 mmol/L (136-145); Triglycerides 135 mg/dL; Very Low Density Lipoprotein 27 mg/dL (5-40)
== END | disposition home or self-care (01) ==
LOC: MTLAB 14:29
PROVIDERS: PCP Family Medicine; Referring Provider Family Medicine; Visit Provider Family Medicine
DX: I10 Essential (primary) hypertension (principal)
CPT/HCPCS: 36415; 80048; 80061

== ENCOUNTER → 2024-02-16 | Outpatient (CLI) | payer MEDICARE, SELFPAY ==
--- NOTE | 2024-02-16 15:05 | BI_ITS ---
MAMMOGRAPHY - BILATERAL SCREENING REASON FOR EXAM: Female, 83 years old. Routine annual screening examination. PERTINENT HISTORY: Personal history of breast cancer. History of prior left lumpectomy. TECHNIQUE: Digital bilateral breast trish (3D mammographic acquisition) in the CC and MLO projections. 2-D mediolateral oblique (MLO) and craniocaudad (CC) views of both breasts were obtained. CAD: Full Field Digital Mammography with Computer Added Detection was performed. COMPARISON: Comparison is made with prior study dated February 10, 2023 and February 08, 2022. FINDINGS: Breast Composition: The breasts are heterogeneously dense, which may obscure small masses. There are no dominant masses or suspicious calcifications. Once again, the patient is status post lumpectomy in the deep central medial aspect of the left breast with resultant postoperative scarring and deformity of the left breast. This is unchanged. No other significant abnormalities are identified. There has been no significant change since the prior study. BI/SCRN MAMM (CAD)W/TRISH BILAT IMPRESSION: Stable bilateral screening mammogram. Yearly follow-up mammogram recommended. (A) ASSESSMENT CATEGORY: BIRADS Category 2: Benign. A letter regarding these results will be sent to the patient by the facility within 30 days. Approximately 10% of breast cancers are not detected by mammography. A normal mammogram should not delay biopsy of a clinically suspicious abnormality. [id number] Electronically Signed: Jeronimo Matthews MD at 15:39 EDT ,
== END | disposition home or self-care (01) ==
LOC: OPBI 15:05
PROVIDERS: PCP Family Medicine; Referring Provider Family Medicine; Visit Provider Family Medicine
DX: Z12.31 Encounter for screening mammogram for malignant neoplasm of breast (principal)
CPT/HCPCS: 77063; 77067

== ENCOUNTER → 2024-08-08 | Outpatient (CLI) | payer MEDICARE, SELFPAY ==
[2024-08-08 18:55] LABS: ALB/GLOB Ratio 1.2 RATIO (0.9-2.4); AST(SGOT) 25 U/L (<=31); Alanine Aminotransfer ALT/SGPT 18 U/L (<=34); Albumin, Serum 4.1 g/dL (3.4-4.8); Alkaline Phosphatase 88 U/L (35-104); Anion Gap 11 (5-15); BUN 19 mg/dL (4-19); BUN/Creat Ratio 18.2 RATIO (10-20); Calcium,Total 9.5 mg/dL (7.6-11.0); Carbon Dioxide 25.2 mmol/L (21.0-32.0); Chloride 107 mmol/L (98-108); Cholesterol 204 mg/dL (<=200); Creatinine, Serum 1.03 mg/dL (0.70-1.20); EST Glomerular Filtration Rate 54 (>60); Globulin 3.5 g/dL (2.2-4.2); Glucose 78 mg/dL (70-99); High Density Lipoprotein 70 mg/dL; Low Density Lipoprotein Calc. 111 mg/dL; Potassium 4.2 mmol/L (3.3-5.1); Protein, Total 7.6 g/dL (5.9-8.4); Sodium Level 143 mmol/L (133-145); Total Bilirubin 0.22 mg/dL (0.00-1.30); Triglycerides 116 mg/dL; Very Low Density Lipoprotein 23 mg/dL (5-40); cholesterol:hdl ratio screen 2.93
== END | disposition home or self-care (01) ==
LOC: MFPLAB 14:20
PROVIDERS: PCP Family Medicine; Referring Provider Family Medicine; Visit Provider Family Medicine
DX: I10 Essential (primary) hypertension (principal)
CPT/HCPCS: 36415; 80053; 80061

== ENCOUNTER → 2025-02-13 | Outpatient (CLI) | payer MEDICARE, SELFPAY ==
--- NOTE | 2025-02-13 13:52 | RAD_ITS ---
PROCEDURE: ABDOMEN SINGLE VIEW 02/13/2025 REASON FOR EXAM: ABDOMINAL BLOATING AND PAIN TECHNIQUE: Procedure Code: RADABD Modality: DX Procedure: ABDOMEN SINGLE VIEW COMPARISON: None FINDINGS: There is a nonobstructive bowel gas pattern. There are cholecystectomy clips in the right upper quadrant of the abdomen. There are no abnormal soft tissue calcifications. There are no significant bony abnormalities. RAD/Abdomen Single View IMPRESSION: No evidence of acute abdominal pathology. Reading Location: [place] [id number]
== END | disposition home or self-care (01) ==
LOC: MTRAD 13:52
PROVIDERS: PCP Family Medicine
DX: R14.0 Abdominal distension (gaseous) (principal)
CPT/HCPCS: 74018

== ENCOUNTER → 2025-03-05 | Outpatient (CLI) | payer MEDICARE, SELFPAY ==
--- NOTE | 2025-03-05 13:51 | BD_ITS ---
PROCEDURE: DEXA BONE DENSITY STUDY 03/05/2025 REASON FOR EXAM: F, age 85 y/o . Postmenopausal. TECHNIQUE: Procedure Code: BDDBD Modality: DX Procedure: DEXA BONE DENSITY STUDY COMPARISON: January 30, 2019. FINDINGS: BMD and T-SCORES Lumbar spine: 0.827 g/cm2, T-score -2.0 Levels: L1 through L4 Change from prior: Improvement of 3.7%. Left femoral neck: 0.620 g/cm2, T-score -2.1 Femoral neck comparison data not recommended for monitoring change. Left total hip: 0.818 g/cm2, T-score -1.0 Change from prior: Loss of 6.2%. Right femoral neck: 0.632 g/cm2, T-score -2.0 Femoral neck comparison data not recommended for monitoring change. Right total hip: 0.772 g/cm2, T-score -1.2 Change from prior: Loss of 6.3%. The World Health Organization has defined the following categories based on bone density: Normal bone density: T-score equal to or greater than -1.0 Osteopenia: T-score between -1.0 and -2.5 Osteoporosis: T-score equal to or less than -2.5 FRAX (or Comparable) Fracture Risk Assessment: 10 Year Probability of Fracture: Major Osteoporotic Fracture: 16% Hip Fracture: 5% (Note: FRAX is not to be reported in setting of normal range bone density, osteoporosis on DEXA, known history of osteoporosis, prior osteoporotic hip or vertebral fracture, or for any patient undergoing pharmacological treatment for bone loss.) The National Osteoporosis Foundation (NOF) recommends pharmacological treatment for patients with a FRAX 10-year risk of 3% or higher for a hip fracture, or 20% or higher for a major osteoporotic fracture, to prevent osteoporosis and reduce fracture risk. The patient does meet the pharmacological treatment recommendations for prevention of osteoporosis. BD/Dexa Bone Density Study IMPRESSION: OSTEOPENIA. Recommend follow-up as clinically warranted. Reading Location: [place] [id number]
--- NOTE | 2025-03-05 16:30 | BI_ITS ---
EXAM: SCRN MAMM (CAD)W/TRISH BILAT DATE: 03/05/2025 CLINICAL HISTORY: F, Age 85 y/o , SCREENING Personal history of breast cancer. Prior left lumpectomy. TECHNIQUE: Procedure Code: [id number] Modality: MG Procedure: SCRN MAMM (CAD)W/TRISH BILAT COMPARISON: Prior exam(s) dated February 16, 2024.. FINDINGS: TISSUE DENSITY: There are scattered areas of fibroglandular density. Bilateral Breast Mammographic Findings: No significant masses, calcifications or other abnormalities are identified. Once again, the patient is status post lumpectomy in the deep central medial portion of the left breast with resultant deformity of the left breast and postoperative scarring. This is unchanged. No suspicious masses, areas of developing architectural distortion, or suspicious calcifications. There has been no significant interval change. BI/SCRN MAMM (CAD)W/TRISH BILAT IMPRESSION: Stable bilateral screening mammogram. OVERALL FINAL ASSESSMENT BI-RADS 2: BENIGN RECOMMENDATION: Routine annual follow-up in 1 Year Additional Recommendation none A letter with findings and recommendations will be mailed to the patient. Reading Location: [place]
== END | disposition home or self-care (01) ==
LOC: OPBD 13:50
PROVIDERS: PCP Family Medicine
DX: Z12.31 Encounter for screening mammogram for malignant neoplasm of breast (principal); Z78.0 Asymptomatic menopausal state
CPT/HCPCS: 77063; 77067; 77080